=== PATIENT | male | born 1985 | race Caucasian/White ===

== ENCOUNTER 2021-07-04 20:14 | Emergency (ER) | payer BC, OTHER ==
[2021-07-04 20:44] VITALS: PULSE 79; RESP 16
[2021-07-04] MEDS ORDERED: DIPH,PERTUS(ACELL)TETVAC-LF 0.5 ML VIAL IM ONE (22:09)
[2021-07-04] MEDS ORDERED: LIDOCAINE 1% INJ 10MG/ML (5 ML VIAL-PF) SQ ONE (22:09)
--- NOTE | 2021-07-04 23:35 | ED ---
Wound/Laceration HPI - General Chief Complaint: Wound/Laceration Stated Complaint: L Hand Laceration Time Seen by Provider: 07/04/21 22:03 Source: patient Mode of arrival: ambulatory Limitations: no limitations - History of Present Illness Initial Comments: Patient is a 36-year-old male who presents for laceration. Patient states he was using a razor blade and accidentally cut his left hand in between his third and fourth fingers. Patient reports minimal pain. He denies numbness and tingling. Reports full range of motion. Last tetanus unknown. No other concerns. - Related Data Allergies Allergy/AdvReac Type Severity Reaction Status Date / Time No Known Allergies Allergy Verified 07/04/21 20:44 Review of Systems ROS Statement: Those systems with pertinent positive or pertinent negative responses have been documented in the HPI. ROS Other: All systems not noted in ROS Statement are negative. Past Medical History Past Medical History: No Reported History History of Any Multi-Drug Resistant Organisms: None Reported Past Surgical History: No Surgical Hx Reported Past Psychological History: No Psychological Hx Reported Smoking Status: Current every day smoker Past Alcohol Use History: Daily Past Drug Use History: Marijuana General Exam Limitations: no limitations General appearance: alert, in no apparent distress Head exam: Present: atraumatic, normocephalic, normal inspection Eye exam: Present: normal appearance, PERRL, EOMI. Absent: scleral icterus, conjunctival injection, periorbital swelling Neck exam: Present: normal inspection Respiratory exam: Present: normal lung sounds bilaterally. Absent: respiratory distress, wheezes, rales, rhonchi, stridor Cardiovascular Exam: Present: regular rate, normal rhythm, normal heart sounds. Absent: systolic murmur, diastolic murmur, rubs, gallop, clicks Left Hand Wrist exam: Absent: normal inspection (1 cm laceration over the web space between third and fourth digit) Neuro motor exam: Present: wrist extension intact, thumb opposition intact, thumb IP flexion intact, thumb adduction intact, fingers 2-5 abduction intact Neurosensory exam: Present: radial nerve intact, ulnar nerve intact, median nerv e intact Vascular: Present: normal capillary refill, radial pulse, brachial pulse, ulnar pulse. Absent: vascular compromise, Pallo Neurological exam: Present: alert, oriented X3, CN II-XII intact Psychiatric exam: Present: normal affect, normal mood Course Vital Signs 07/04/21 07/04/21 20:42 23:46 Temperature 98.4 F 99.7 F H Pulse Rate 79 79 Respiratory 16 16 Rate Blood Pressure 161/103 170/99 O2 Sat by Pulse 99 99 Oximetry Procedures - Laceration Laceration #1 Consent Obtained: verbal consent Indication: laceration Site: hand (Left) Size (cm): 1 Description: irregular Depth: simple, single layer Anesthetic Used: lidocaine 1% Amount (mls): 5 Pre-repair: wound explored, irrigated extensively, deep structures intact Type of Sutures: nylon Size of Sutures: 5-0 Number of Sutures: 2 Technique: simple, interrupted Patient Tolerated Procedure: well, no complications Medical Decision Making - Medical Decision Making This is a 36-year-old male presents for evaluation of laceration. Thorough history and examination were performed. There is a 1 cm laceration over the web space between third and fourth digit. Neurovascularly intact. Full range of motion. The wound explored and irrigated extensively. It was well approximated with 2 sutures. Patient tolerated the procedure well with no complications. Tetanus updated. Wound care education was provided. Patient to follow-up in 7-10 days for suture removal. Return parameters discussed. Patient verbalizes understanding and is agreeable to this plan. Dr. Salmeron is my attending. Disposition Clinical Impression: Laceration Disposition: HOME SELF-CARE Instructions (If sedation given, give patient instructions): Care For Your Stitches (ED), Laceration (ED) Additional Instructions: Please return for suture removal in 7-10 days. Return to the emergency department if you experience new, concerning, or worsening symptoms. Is patient prescribed a controlled substance at d/c from ED?: No Referrals: Jermain Hall MD [Primary Care Provider] - 1-2 days Time of Disposition: 23:35
[2021-07-04 23:48] VITALS: BP 170/99; TEMP 99.7
== END 2021-07-04 23:46 | disposition home or self-care (01) ==
LOC: EC 20:14
DX: S61.412A Laceration without foreign body of left hand, initial encounter (principal); F17.200 Nicotine dependence, unspecified, uncomplicated; Z23 Encounter for immunization; W26.8XXA Contact with other sharp object(s), not elsewhere classified, initial encounter
CPT/HCPCS: 90715; 99282; 90471; 12001; J2001

== ENCOUNTER 2021-12-25 09:44 | Emergency (ER) | payer BC, OTHER ==
[2021-12-25 09:52] VITALS: TEMP 98.3
[2021-12-25] MEDS ORDERED: dexAMETHasone 2 MG TAB PO STA (09:56)
[2021-12-25] MEDS ORDERED: LIDOCAINE VISCOUS 2% 15 ML CUP MUCOUS MEM ONE (10:06)
--- NOTE | 2021-12-25 10:09 | ED ---
General Adult HPI - General Chief complaint: ENT Stated complaint: sore throat Time Seen by Provider: 12/25/21 09:46 Source: patient, RN notes reviewed, old records reviewed Mode of arrival: ambulatory Limitations: no limitations - History of Present Illness Initial comments: Patient is a 36-year-old male who presents emergency department over concern for a sore throat since Friday. Was diagnosed Covid 2 weeks ago on a rapid test and was asymptomatic at that time. Denies cough. Began developing a sore throat on Friday. Is seeking strep throat swab. Does have a history of recurrent strep throat. Presents seeking testing. Denies cough. Denies much congestion. Denies any chest pain, shortness breath, abdominal pain, nausea, vomiting, diarr hea. No other acute complaints at this time. - Related Data Allergies Allergy/AdvReac Type Severity Reaction Status Date / Time No Known Allergies Allergy Verified 12/25/21 09:52 Review of Systems ROS Statement: Those systems with pertinent positive or pertinent negative responses have been documented in the HPI. Review of Systems: CONST: Denies fever EYES: Denies blurry vision ENT: Endorses sore throat C/V: Denies Chest pain RESP: Denies shortness of breath GI: Denies abdominal pain : Denies dysuria SKIN: Denies rash. MSK: Denies joint pain. NEURO: Denies headache ROS Other: All systems not noted in ROS Statement are negative. Past Medical History Past Medical History: No Reported History History of Any Multi-Drug Resistant Organisms: None Reported Past Surgical History: No Surgical Hx Reported Past Psychological History: No Psychological Hx Reported Smoking Status: Current every day smoker Past Alcohol Use History: Daily Past Drug Use History: Marijuana General Exam - General Exam Comments Initial Comments: General: Appears in no acute distress. HEAD: Normal with no signs of head trauma. EYES: EOMI ENT: Hearing grossly intact. Erythematous posterior oropharynx. No exudates observed. Uvula midline. No stridor. Bilateral TMs within normal limits. RESPIRATORY: No respiratory distress. No hypoxia. C/V: S1 and S2 auscultated. Peripheral pulses 2+ intact throughout. Regular rate and rhythm. ABD: Nondistended EXT: No obvious deformity SKIN: No rashes or lesions observed on exposed skin. NEURO: Alert and oriented 4 Limitations: no limitations Course Vital Signs 12/25/21 12/25/21 09:50 11:25 Temperature 98.3 F Pulse Rate 102 H 87 Respiratory 18 16 Rate Blood Pressure 152/99 142/95 O2 Sat by Pulse 98 97 Oximetry Medical Decision Making - Medical Decision Making Based on the patient's presentation and physical exam, I'm concerned for possible strep throat the patient. He did have Covid 2 weeks ago, and there will be no change in management if we were to testing for Covid at this time. We decided just to obtain strep throat swabs. He'll be given Decadron as well as viscous lidocaine. Vital signs within acceptable limits. He was in agreement this plan. Was a delay in obtaining stroke strep throat swab and the patient asked if he could leave and be called with the results. I was in agreement with this plan. Patient's strep throat testing did return and was negative. I spoke with the patient regarding his results at his phone number, [phone]. He expressed understanding. I answered all questions that he had. Recommended [id number] remedies, and retesting if he begins having worsening symptoms or any concern. He was in agreement this plan. I instructed the patient to follow up with their PCP in the next 1-3 days. I explained that the patient should return to the emergency department if they experience any worsening symptoms. Strict return precautions were discussed with the patient. The patient expressed understanding of these instructions. I answ ered all questions that the patient had. The patient was discharged home in good condition with their prescriptions and follow up information. - Lab Data Lab Results 12/25/21 Range/Units 10:46 Group A Strep (PCR) NOT DETECTED (Not Detectd) Disposition Clinical Impression: Sore throat Disposition: HOME SELF-CARE Condition: Good Instructions (If sedation given, give patient instructions): Pharyngitis (ED) Is patient prescribed a controlled substance at d/c from ED?: No Referrals: Jermain Hall MD [REFERRING] - 1-2 days Time of Disposition: 10:49
[2021-12-25 11:29] VITALS: BP 142/95; PULSE 87; RESP 16
== END 2021-12-25 11:29 | disposition home or self-care (01) ==
LOC: EC 09:44
DX: J02.9 Acute pharyngitis, unspecified (principal); F17.200 Nicotine dependence, unspecified, uncomplicated; F12.90 Cannabis use, unspecified, uncomplicated
CPT/HCPCS: 87651; 99283; J8540

== ENCOUNTER 2022-04-26 18:13 | Emergency (ER) | payer OTHER ==
[2022-04-26 18:19] VITALS: TEMP 97.9
[2022-04-26] MEDS ORDERED: SODIUM CHLORIDE 0.9% 1,000 ML IV STA (18:32)
--- NOTE | 2022-04-26 18:33 | ED ---
General Adult HPI - General Chief complaint: Neuro Symptoms/Deficit Stated complaint: Light headed and dizziness Time Seen by Provider: 04/26/22 18:20 Source: patient Mode of arrival: ambulatory Limitations: no limitations - History of Present Illness Initial comments: Dictation was produced using Segment dictation software. please excuse any gramma tical, word or spelling errors. Chief Complaint: 36-year-old male presents emergency Department with several hours of nausea, lightheadedness and paresthesias to the left upper extremity History of Present Illness:36-year-old male who was at work. 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 He states that he was at work when all of a sudden he didn't feel well. He started to notice tingling noted to his left arm. States the tingling is mildly radiates from his left shoulder down to his fingertips. Sclerae circumferential. Patient also feels a little lightheaded. Denies any nausea. He states that he did feel well asked to leave work. He went home also and felt like his symptoms became slightly improved. He decided come to the emergency department to be evaluated. Patient reports that he does feel the beginnings of a mild headache. Denies any weakness of his left arm. No other complaints. Denies any constitutional symptoms. The ROS documented in this emergency department record has been reviewed and confirmed by me. Those systems with pertinent positive or negative responses have been documented in the HPI. All other systems are other negative and/or noncontributory. PHYSICAL EXAM: General Impression: Alert and oriented x3, not in acute distress HEENT: Normocephalic atraumatic, extra-ocular movements intact, pupils equal and reactive to light bilaterally, mucous membranes moist. Cardiovascular: Heart regular rate and rhythm Chest: Able to complete full sentences, no retractions, no tachypnea Abdomen: abdomen soft, non-tender, non-distended, no organomegaly Musculoskeletal: Pulses present and equal in all extremities, no peripheral edema Motor: no focal deficits noted Neurological: CN II-XII grossly intact, no focal motor or sensory deficits noted Skin: Intact with no visualized rashes Psych: Normal affect and mood ED course: 36-year-old well-appearing male presents emergency department for chief complaint of left upper extremity paresthesias, mild headache and lightheadedness. Vital signs arrival are within acceptable limits. EKG is unremarkable. Nursing notes and chart review was performed EKG interpreted by me: Ventricular rate 87, sinus rhythm,. 154, QRS 111, QTC 395. No IA prolongation, no QTC prolongation, no ST or T-wave changes noted. Overall, this EKG is unremarkable Was pt. sent in by a medical professional or institution (ARTEM Lockett, PITCH WORKER, urgent care, hospital, or halfway...) When possible be specific @ -No Did you speak to anyone other than the patient for history (EMS, parent, family, police, friend...)? What history was obtained from this source @ -No Did you review nursing and triage notes (agree or disagree)? Why? @ -I reviewed and agree with nursing and triage notes Were old charts reviewed (outside hosp., previous admission, EMS record, old EKG, old radiological studies, urgent care reports/EKG's, halfway records)? Report findings @ -No old charts were reviewed Differential Diagnosis (chest pain, altered mental status, abdominal pain women, abdominal pain men, vaginal bleeding, musculoskeletal, weakness, fever, dyspnea, syncope, headache, dizziness, GI bleed, back pain, seizure, CVA, palpatations, mental health)? @ -CVA, intracranial mass, viral syndrome, primary headache EKG interpreted by me (3pts min.). @ -See above X-rays interpreted by me (1pt min.). @ -None done CT interpreted by me (1pt min.). @ -No acute processes U/S interpreted by me (1pt. min.). @ -None done What testing was considered but not performed or refused? (CT, X-rays, U/S, labs)? Why? @ -See above What meds were considered but not given or refused? Why? @ -See above Did you discuss the management of the patient with other professionals (professionals i.e. ARTEM Lockett, PITCH WORKER, lab, RT, psych nurse, social services manager, housekeeper and laundry assistant, teacher, correctional security officer, case supervisor)? Give summary @ -no Was smoking cessation discussed for >3mins.? @ -No Was critical care preformed (if so, how long)? @ -No Were there social determinants of health that impacted care today? How? (Homelessness, low income, unemployed, alcoholism, drug addiction, tr ansportation, low edu. Level, literacy, decrease access to med. care, assisted, rehab)? @ -No Was there de-escalation of care discussed even if they declined (Discuss DNR or withdrawal of care, Hospice)? DNR status @ -No What co-morbidities impacted this encounter? (DM, HTN, Smoking, COPD, CAD, Cancer, CVA, ARF, Chemo, Hep., AIDS, mental health diagnosis, sleep apnea, morbid obesity)? @ -None Was patient admitted / discharged? Hospital course, mention meds given and route, prescriptions, significant lab abnormalities, going to OR and other pertinent info. @ -36-year-old male presents emergency department for nonspecific symptoms. As a component of neurologic symptoms and headache. Physical examination is benign. Laboratory evaluation obtained. Labs are unremarkable. Computed tomography scan of the brain to prevent by myself shows no acute processes. Artem mariposafransico monitored in the emergency department for approximately 1 hour 10 minutes. Reevaluated at bedside at 725. Vitamin C medical condition. Patient treated with fluids, Zofran and Toradol. Patient feeling much improved. At this point no obvious source of patient's symptoms however he doesn't have any high-risk features. Patient is agreeable to discharge. Advised follow-up with primary care doctor. Undiagnosed new problem with uncertain prognosis? @ -No Drug Therapy requiring intensive monitoring for toxicity (Heparin, Nitro, Insul in, Cardizem)? @ -No Were any procedures done? @ -No Diagnosis/symptom? Acute, or Chronic, or Acute on Chronic? Uncomplicated (without systemic symptoms) or Complicated (systemic symptoms)? @ -1. Acute lightheadedness Side effects of treatment? @ -No Exacerbation, Progression, or Severe Exacerbation? @ -No Poses a threat to life or bodily function? How? (Chest pain, [place], [place], pneumonia, PE, COPD, DKA, ARF, appy, cholecystitis, CVA, Diverticulitis, Homicidal, Suicidal, threat to staff... and all critical care pts) @ -No - Related Data Home Medications Medication Instructions Recorded Confirmed Cholecalciferol [Vitamin D3 (25 50 mcg PO DAILY 04/26/22 04/26/22 Mcg = 1000 Iu)] Cyanocobalamin (Vitamin B-12) 1,000 mcg PO DAILY 04/26/22 04/26/22 [Vitamin B-12] Ibuprofen [Motrin Ib] 400 mg PO Q6H PRN 04/26/22 04/26/22 [place]-3/Dha/Epa/Fish Oil [Fish Oil 1 cap PO DAILY 04/26/22 04/26/22 1,000 mg Softgel] Allergies Allergy/AdvReac Type Severity Reaction Status Date / Time No Known Allergies Allergy Verified 04/26/22 18:27 Review of Systems ROS Statement: Those systems with pertinent positive or pertinent negative responses have been documented in the HPI. ROS Other: All systems not noted in ROS Statement are negative. Past Medical History Past Medical History: No Reported History History of Any Multi-Drug Resistant Organisms: None Reported Past Surgical History: No Surgical Hx Reported Past Psychological History: No Psychological Hx Reported Smoking Status: Current every day smoker Past Alcohol Use History: Daily Past Drug Use History: Marijuana General Exam Limitations: no limitations Course Vital Signs 04/26/22 04/26/22 18:15 18:42 Temperature 97.9 F Pulse Rate 93 92 Respiratory 16 18 Rate Blood Pressure 178/116 163/77 O2 Sat by Pulse 99 98 Oximetry Medical Decision Making - Lab Data Result diagrams: 04/26/22 18:40 04/26/22 18:40 Lab Results 04/26/22 04/26/22 Range/Units 18:40 18:40 WBC 6.9 (3.8-10.6) k/uL RBC 4.68 (4.30-5.90) m/uL Hgb 16.5 (13.0-17.5) gm/dL Hct 44.5 (39.0-53.0) % MCV 95.0 (80.0-100.0) fL MCH 35.2 H (25.0-35.0) pg MCHC 37.1 H (31.0-37.0) g/dL RDW 13.2 (11.5-15.5) % Plt Count 188 (150-450) k/uL MPV 7.0 Neutrophils % 52 % Lymphocytes % 36 % Monocytes % 6 % Eosinophils % 3 % Basophils % 1 % Neutrophils # 3.5 (1.3-7.7) k/uL Lymphocytes # 2.5 (1.0-4.8) k/uL Monocytes # 0.4 (0-1.0) k/uL Eosinophils # 0.2 (0-0.7) k/uL Basophils # 0.1 (0-0.2) k/uL Sodium 135 L (137-145) mmol/L Potassium 4.0 (3.5-5.1) mmol/L Chloride 100 (98-107) mmol/L Carbon Dioxide 27 (22-30) mmol/L Anion Gap 8 mmol/L BUN 18 (9-20) mg/dL Creatinine 0.71 (0.66-1.25) mg/dL Est GFR (CKD-EPI)AfAm >90 (>60 ml/min/1.73 sqM) Est GFR (CKD-EPI)NonAf >90 (>60 ml/min/1.73 sqM) Glucose 106 H (74-99) mg/dL Calcium 9.0 (8.4-10.2) mg/dL Magnesium 1.7 (1.6-2.3) mg/dL Disposition Clinical Impression: Lightheaded Disposition: HOME SELF-CARE Condition: Good Instructions (If sedation given, give patient instructions): Lightheadedness (ED) Is patient prescribed a controlled substance at d/c from ED?: No Referrals: Nonstaff,Physician [Primary Care Provider] - 1-2 days Time of Disposition: 19:28
[2022-04-26] MEDS ORDERED: ONDANSETRON 4 MG/2 ML VIAL IVP STA (18:47)
[2022-04-26] MEDS ORDERED: KETOROLAC 15 MG/ML 1 ML VIAL IVP STA (18:47)
[2022-04-26 18:52] LABS: Basophils # (A) 0.1 k/uL (0-0.2); Basophils % (A) 1 %; Eosinophils # (A) 0.2 k/uL (0-0.7); Eosinophils % (A) 3 %; HCT 44.5 % (39.0-53.0); HGB 16.5 gm/dL (13.0-17.5); Lymphocytes # (A) 2.5 k/uL (1.0-4.8); Lymphocytes % (A) 36 %; MCH 35.2 pg (25.0-35.0); MCHC 37.1 g/dL (31.0-37.0); Monocytes # (A) 0.4 k/uL (0-1.0); Monocytes % (A) 6 %; Neutrophils # (A) 3.5 k/uL (1.3-7.7); Neutrophils % (A) 52 %; Platelet Count 188 k/uL (150-450); RBC 4.68 m/uL (4.30-5.90); RDW 13.2 % (11.5-15.5); WBC 6.9 k/uL (3.8-10.6)
[2022-04-26 18:58] LABS: African American GFR (CKD) >90 (>60 ml/min/1.73 sqM); Anion Gap 8 mmol/L; Blood Urea Nitrogen 18 mg/dL (9-20); Carbon Dioxide 27 mmol/L (22-30); Chloride 100 mmol/L (98-107); Glucose 106 mg/dL (74-99); Magnesium 1.7 mg/dL (1.6-2.3); Non-African American GFR(CKD) >90 (>60 ml/min/1.73 sqM); Sodium 135 mmol/L (137-145)
--- NOTE | 2022-04-26 19:22 | CT ---
EXAMINATION TYPE: CT brain wo con DATE OF EXAM: 04/26/2022 COMPARISON: None HISTORY: Dizziness, brain fog x1day, no injury. CT DLP: 1143.4 mGycm Automated exposure control for dose reduction was used. Images obtained of the brain without contrast. Ventricles have normal size. There is no mass effect or midline shift. No sign of intracranial hemorr roberth. The calvarium is intact. Skull base is intact. IMPRESSION: Negative unenhanced head CT scan.
[2022-04-26] MEDS ORDERED: ONDANSETRON 4 MG ODT STARTER PACK 2 TAB BTL PO STA (19:28)
[2022-04-26 20:43] VITALS: BP 156/92; PULSE 80; RESP 16
== END 2022-04-26 20:10 | disposition home or self-care (01) ==
LOC: EC 18:13
DX: R42 Dizziness and giddiness (principal); F17.200 Nicotine dependence, unspecified, uncomplicated; F12.90 Cannabis use, unspecified, uncomplicated
CPT/HCPCS: 36415; 93005; 80048; 83735; 85025; 70450; 99284; 96360; S0119

== ENCOUNTER 2023-04-23 11:51 | Emergency (ER) | payer OTHER ==
[2023-04-23 12:14] VITALS: RESP 18; TEMP 98.4
--- NOTE | 2023-04-23 13:09 | ED ---
Alcohol HPI - General Source: patient, RN notes reviewed Mode of arrival: ambulatory Limitations: no limitations <Marisa Jenkins - Last Filed: 04/23/23 13:07> <Riky Lynne - Last Filed: 04/23/23 16:55> - General Chief Complaint: Alcohol Stated Complaint: Dizziness, SOB, disoriented Time Seen by Provider: 04/23/23 13:00 - History of Present Illness Initial Comments: Quick Note: This is a 37-year-old male who presents to the emergency department for alcohol abuse. Patient states that he woke up having a panic attack, which is unusual for him. He started to feel very dizzy, disoriented, and had tingling in his extremities. Also reports some shortness of breath. He took himself to an urgent care and was told that this is likely related to alcohol abuse. States that the amount he drinks varies each day. He has not had anything to drink today, but yesterday had half of a fifth of liquor. (Marisa Jenkins) This is a 37-year-old male who presents to the emergency department stating that he is a daily drinker and today he woke up and was having a panic attack felt short of breath and became dizzy and had tingling in both of his hands and feet. Patient states he went to the urgent care and they told him to come to the emergency department. Patient states he normally does not start drinking till the evening. Patient denies any abdominal pain. Patient Nu[place] chest pain or palpitations. Patient denies any headache patient denies any focal numbness or weakness. (Riky Lynne) - Related Data Home Medications Medication Instructions Recorded Confirmed Cholecalciferol [Vitamin D3 (25 50 mcg PO DAILY 04/26/22 04/26/22 Mcg = 1000 Iu)] Cyanocobalamin (Vitamin B-12) 1,000 mcg PO DAILY 04/26/22 04/26/22 [Vitamin B-12] Ibuprofen [Motrin Ib] 400 mg PO Q6H PRN 04/26/22 04/26/22 [place]-3/Dha/Epa/Fish Oil [Fish Oil 1 cap PO DAILY 04/26/22 04/26/22 1,000 mg Softgel] Allergies Allergy/AdvReac Type Severity Reaction Status Date / Time No Known Allergies Allergy Verified 04/23/23 12:13 Review of Systems ROS Other: All systems not noted in ROS Statement are negative. <Marisa Jenkins - Last Filed: 04/23/23 13:07> ROS Other: All systems not noted in ROS Statement are negative. <Riky Lynne - Last Filed: 04/23/23 16:55> ROS Statement: Those systems with pertinent positive or pertinent negative responses have been documented in the HPI. Past Medical History Past Medical History: No Reported History History of Any Multi-Drug Resistant Organisms: None Reported Past Surgical History: No Surgical Hx Reported Past Psychological History: No Psychological Hx Reported, Depression Smoking Status: Current every day smoker Past Alcohol Use History: Daily Past Drug Use History: Marijuana <Marisa Jenkins - Last Filed: 04/23/23 13:07> General Exam <Marisa Jenkins - Last Filed: 04/23/23 13:07> <Riky Lynne - Last Filed: 04/23/23 16:55> - General Exam Comments Initial Comments: Visual Physical Exam Vital signs reviewed General: Well-appearing, nontoxic, no acute distress. Head: Normocephalic, atraumatic Eyes: PERRLA, EOMI ENT: Airway patent Chest: Nonlabored breathing Skin: No visual rash, normal skin tone Neuro: Alert and oriented 3 Musculoskeletal: No gross abnormalities (Marisa Jenkins) GENERAL: Patient is well-developed and well-nourished. Patient is nontoxic and well- hydrated and is in mild distress. ENT: Neck is soft and supple. No significant lymphadenopathy is noted. Oropharynx is clear. Moist mucous membranes. Neck has full range of motion without eliciting any pain. EYES: The sclera were anicteric and conjunctiva were pink and moist. Extraocular movements were intact and pupils were equal round and reactive to light. Eyelids were unremarkable. PULMONARY: Unlabored respirations. Good breath sounds bilaterally. No audible rales rhonchi or wheezing was noted. CARDIOVASCULAR: There is a regular rate and rhythm without any murmurs gallops or rubs. ABDOMEN: Soft and nontender with normal bowel sounds. SKIN: Skin is clear with no lesions or rashes and otherwise unremarkable. NEUROLOGIC: Patient is alert and oriented x3. Cranial nerves II through XII are grossly intact. Motor and sensory are also intact. Normal speech, volume and content. Symmetrical smile. MUSCULOSKELETAL: Normal extremities with adequate strength and full range of motion. LYMPHATICS: No significant lymphadenopathy is noted PSYCHIATRIC: Patient is mildly anxious (Riky Lynne) Course Vital Signs 04/23/23 04/23/23 12:07 16:50 Temperature 98.4 F Pulse Rate 83 73 Respiratory 18 18 Rate Blood Pressure 163/101 158/99 O2 Sat by Pulse 99 97 Oximetry Medical Decision Making <Marisa Jenkins - Last Filed: 04/23/23 13:07> - Lab Data Result diagrams: 04/23/23 13:27 04/23/23 13:27 <Riky Lynne - Last Filed: 04/23/23 16:55> - Medical Decision Making I performed the QuickNote portion of this chart. Signed Marisa Jenkins PA-C. (Marisa Jenkins) EKG is interpreted by myself but EKG shows a sinus rhythm at 79 bpm WA is 161 QRS is 105 QT interval 371 QTc is 400 patient EKG shows no ST segment ovation. Was pt. sent in by a medical professional or institution ([facility], [facility], urgent care, hospital, or care home...) When possible be specific @ -No Did you speak to anyone other than the patient for history (EMS, parent, family, police, friend...)? What history was obtained from this source @ -No Did you review nursing and triage notes (agree or disagree)? Why? @ -I reviewed and agree with nursing and triage notes Were old charts reviewed (outside hosp., previous admission, EMS record, old EKG, old radiological studies, urgent care reports/EKG's, care home records)? Report findings @ -No old charts were reviewed Differential Diagnosis (chest pain, altered mental status, abdominal pain women, abdominal pain men, vaginal bleeding, weakness, fever, dyspnea, syncope, headache, dizziness, GI bleed, back pain, seizure, CVA, palpatations, mental health, musculoskeletal)? @ -Not applicable EKG interpreted by me (3pts min.). @ -As above X-rays interpreted by me (1pt min.). @ -None done CT interpreted by me (1pt min.). @ -None done U/S interpreted by me (1pt. min.). @ -None done What testing was considered but not performed or refused? (CT, X-rays, U/S, labs)? Why? @ -None What meds were considered but not given or refused? Why? @ -None Did you discuss the management of the patient with other professionals (professionals i.e. , PA, RIDING TEACHER, lab, RT, psych nurse, social contact worker, block sawyer, teacher, training officer, sample case porter)? Give summary @ -No Was smoking cessation discussed for >3mins.? @ -No Was critical care preformed (if so, how long)? @ -No Were there social determinants of health that impacted care today? How? (Homelessness, low income, unemployed, alcoholism, drug addiction, transportation, low edu. Level, literacy, decrease access to med. care, half-way, rehab)? @ -No Was there de-escalation of care discussed even if they declined (Discuss DNR or withdrawal of care, Hospice)? DNR status @ -No What co-morbidities impacted this encounter? (DM, HTN, Smoking, COPD, CAD, Cancer, CVA, ARF, Chemo, Hep., AIDS, mental health diagnosis, sleep apnea, morbid obesity)? @ -None Was patient admitted / discharged? Hospital course, mention meds given and route, prescriptions, significant lab abnormalities, going to OR and other pertinent info. @ -Patient received fluids as well as magnesium for the low magnesium value. Patient also received some Ativan. I went back and reevaluated the patient on 2 occasions and he was feeling considerably better. Undiagnosed new problem with uncertain prognosis? @ -No Drug Therapy requiring intensive monitoring for toxicity (Heparin, Nitro, Insulin, Cardizem)? @ -No Were any procedures done? @ -No Diagnosis/symptom? @ -Alcohol abuse Acute, or Chronic, or Acute on Chronic? @ -Acute Uncomplicated (without systemic symptoms) or Complicated (systemic symptoms)? @ -Complicated Side effects of treatment? @ -No Exacerbation, Progression, or Severe Exacerbation? @ -No Poses a threat to life or bodily function? How? (Chest pain, [place], [place], pneumonia, PE, COPD, DKA, ARF, appy, cholecystitis, CVA, Diverticulitis, Homicidal, Suicidal, threat to staff... and all critical care pts) @ -No Diagnosis/symptom? @ -Hypomagnesemia Acute, or Chronic, or Acute on Chronic? @ -Acute Uncomplicated (without systemic symptoms) or Complicated (systemic symptoms)? @ -Complicated Side effects of treatment? @ -None Exacerbation, Progression, or Severe Exacerbation] @ -No Poses a threat to life or bodily function? @ -No Diagnosis/symptom? @ -Anxiety Acute, or Chronic, or Acute on Chronic? @ -Acute Uncomplicated (without systemic symptoms) or Complicated (systemic symptoms)? @ -Uncomplicated Side effects of treatment? @ -None Exacerbation, Progression, or Severe Exacerbation] @ -No Poses a threat to life or bodily function? @ -No (Riky Lynne) - Lab Data Lab Results 04/23/23 04/23/23 Range/Units 13:27 13:27 WBC 12.0 H (3.8-10.6) k/uL RBC 4.73 (4.30-5.90) m/uL Hgb 16.3 (13.0-17.5) gm/dL Hct 46.9 (39.0-53.0) % MCV 99.1 (80.0-100.0) fL MCH 34.5 (25.0-35.0) pg MCHC 34.8 (31.0-37.0) g/dL RDW 12.9 (11.5-15.5) % Plt Count 216 (150-450) k/uL MPV 7.4 Neutrophils % 82 % Lymphocytes % 11 % Monocytes % 4 % Eosinophils % 1 % Basophils % 0 % Neutrophils # 9.9 H (1.3-7.7) k/uL Lymphocytes # 1.4 (1.0-4.8) k/uL Monocytes # 0.5 (0-1.0) k/uL Eosinophils # 0.1 (0-0.7) k/uL Basophils # 0.0 (0-0.2) k/uL Sodium 138 (137-145) mmol/L Potassium 4.2 (3.5-5.1) mmol/L Chloride 100 (98-107) mmol/L Carbon Dioxide 29 (22-30) mmol/L Anion Gap 9 mmol/L BUN 11 (9-20) mg/dL Creatinine 0.74 (0.66-1.25) mg/dL Est GFR (CKD-EPI)AfAm >90 (>60 ml/min/1.73 sqM) Est GFR (CKD-EPI)NonAf >90 (>60 ml/min/1.73 sqM) Glucose 132 H (74-99) mg/dL Calcium 9.7 (8.4-10.2) mg/dL Phosphorus 3.5 (2.5-4.5) mg/dL Magnesium 1.3 L (1.6-2.3) mg/dL Total Bilirubin 0.8 (0.2-1.3) mg/dL AST 146 H (17-59) U/L ALT 163 H (4-49) U/L Alkaline Phosphatase 62 (38-126) U/L Total Protein 7.7 (6.3-8.2) g/dL Albumin 4.9 (3.5-5.0) g/dL Serum Alcohol <10 mg/dL Disposition <Marisa Jenkins - Last Filed: 04/23/23 13:07> Is patient prescribed a controlled substance at d/c from ED?: No Time of Disposition: 16:49 <Riky Lynne - Last Filed: 04/23/23 16:55> Clinical Impression: Alcohol abuse, Hypomagnesemia, Anxiety Disposition: HOME SELF-CARE Condition: Good Instructions (If sedation given, give patient instructions): Abuse of Alcohol (ED), Hypomagnesemia (ED) Additional Instructions: Patient should go to be admitted at a rehabilitation center Patient should take magnesium [id number] daily Referrals: Jermain Hall MD [Primary Care Provider] - 1-2 days
[2023-04-23 13:52] LABS: Basophils % (A) 0 %; Eosinophils # (A) 0.1 k/uL (0-0.7); Eosinophils % (A) 1 %; HCT 46.9 % (39.0-53.0); HGB 16.3 gm/dL (13.0-17.5); Lymphocytes # (A) 1.4 k/uL (1.0-4.8); Lymphocytes % (A) 11 %; MCH 34.5 pg (25.0-35.0); MCHC 34.8 g/dL (31.0-37.0); MCV 99.1 fL (80.0-100.0); Mean Platelet Volume 7.4; Monocytes # (A) 0.5 k/uL (0-1.0); Monocytes % (A) 4 %; Neutrophils # (A) 9.9 k/uL (1.3-7.7); Neutrophils % (A) 82 %; Platelet Count 216 k/uL (150-450); RBC 4.73 m/uL (4.30-5.90); RDW 12.9 % (11.5-15.5)
[2023-04-23 14:05] LABS: ALT 163 U/L (4-49); AST 146 U/L (17-59); African American GFR (CKD) >90 (>60 ml/min/1.73 sqM); Albumin 4.9 g/dL (3.5-5.0); Alcohol <10 mg/dL; Alkaline Phosphatase 62 U/L (38-126); Anion Gap 9 mmol/L; Blood Urea Nitrogen 11 mg/dL (9-20); Calcium 9.7 mg/dL (8.4-10.2); Carbon Dioxide 29 mmol/L (22-30); Chloride 100 mmol/L (98-107); Glucose 132 mg/dL (74-99); Magnesium 1.3 mg/dL (1.6-2.3); Non-African American GFR(CKD) >90 (>60 ml/min/1.73 sqM); Phosphorus 3.5 mg/dL (2.5-4.5); Potassium 4.2 mmol/L (3.5-5.1); Sodium 138 mmol/L (137-145); Total Bilirubin 0.8 mg/dL (0.2-1.3); Total Protein 7.7 g/dL (6.3-8.2)
[2023-04-23] MEDS: MAGNESIUM SULFATE-D5W PMX 1 GM in DEXTROSE/WATER 1 100ML.BAG IVPB ONE (14:45)
--- NOTE | 2023-04-23 14:55 | XR ---
EXAMINATION TYPE: XR chest 2V DATE OF EXAM: 04/23/2023 COMPARISON: None HISTORY: 37-year-old male with chest pain and dizziness TECHNIQUE: PA and lateral views FINDINGS: The cardiomediastinal silhouette, aorta, and pulmonary vasculature are within normal limits. Lungs an d pleural spaces are clear. IMPRESSION: No acute cardiopulmonary process.
[2023-04-23] MEDS: SODIUM CHLORIDE 0.9% 1,000 ML IV ONE (14:58)
[2023-04-23] MEDS: SODIUM CHLORIDE 0.9% 500 ML 500 ML IV ONE (14:58)
[2023-04-23] MEDS: LORazepam 2 MG/ML INJ IV STA ×2 (14:58→17:05)
[2023-04-23] MEDS: ONDANSETRON 4 MG/2 ML VIAL IVP STA (14:58)
[2023-04-23 17:00] VITALS: BP 158/99; PULSE 73
== END 2023-04-23 17:06 | disposition home or self-care (01) ==
LOC: EC 11:51
DX: F10.10 Alcohol abuse, uncomplicated (principal); E83.42 Hypomagnesemia; F41.9 Anxiety disorder, unspecified; F12.90 Cannabis use, unspecified, uncomplicated; F17.200 Nicotine dependence, unspecified, uncomplicated
CPT/HCPCS: 36415; 93005; 80053; 83735; 84100; 85025; 80320; 71046; 99285; 96365; 96375 ×2; 96361; J2060; J2405; J3475

== ENCOUNTER 2023-11-09 02:25 | Emergency (ER) | payer BC ==
[2023-11-09 02:28] VITALS: TEMP 98
[2023-11-09] MEDS: SODIUM CHLORIDE 0.9% 2,000 ML IV STA (03:08)
--- NOTE | 2023-11-09 03:14 | ED ---
General Adult HPI - General Chief complaint: Abdominal Pain Stated complaint: Abd Pain/Vomitting Time Seen by Provider: 11/09/23 02:44 Source: patient Mode of arrival: ambulatory Limitations: no limitations - History of Present Illness Initial comments: Patient is a 38-year-old M with a past medical history of alcoholism presenting today for nausea, vomiting and abdominal pain. Patient states he went to the [facility] with his girlfriend today ate some food and drink some water and went home. He states he did have about 3 beers. Upon arrival home he had some sausage and then states it felt like he sat like a brick in his stomach. He began having episodes of nonbloody nonbilious emesis. As well as epigastric abdominal pain. Additionally noticed left-sided chest tightness. Last bowel movement was earlier today and was small. No prior abdominal surgeries. Patient does currently drink approximately half a pint of alcohol a day but states he is cutting back from his usual pint today. Started cutting back 30 center Friday. States it does not feel like his usual alcohol draws. Denies fevers but endorses chills. No cough or hemoptysis. No lightheadedness or dizziness. No diarrhea or black or bloody stools. Denies visual or auditory hallucinations. Denies sensations of pain or needles. No illicit drug use. - Related Data Home Medications Medication Instructions Recorded Confirmed Cholecalciferol [Vitamin D3 (25 50 mcg PO DAILY 04/26/22 04/26/22 Mcg = 1000 Iu)] Cyanocobalamin (Vitamin B-12) 1,000 mcg PO DAILY 04/26/22 04/26/22 [Vitamin B-12] Ibuprofen [Motrin Ib] 400 mg PO Q6H PRN 04/26/22 04/26/22 Emerson-3/Dha/Epa/Fish Oil [Fish Oil 1 cap PO DAILY 04/26/22 04/26/22 1,000 mg Softgel] Previous Rx's Medication Instructions Recorded Famotidine/Ca Carb/Mag Hydrox 1 tab PO Q8HR PRN 7 Days #24 tab 11/09/23 [Pepcid Complete Tablet Chew] Ondansetron [Zofran] 4 mg PO Q8HR PRN #10 tab 11/09/23 Allergies Allergy/AdvReac Type Severity Reaction Status Date / Time No Known Allergies Allergy Verified 11/09/23 02:28 Review of Systems ROS Statement: Those systems with pertinent positive or pertinent negative responses have been documented in the HPI. ROS Other: All systems not noted in ROS Statement are negative. Past Medical History Past Medical History: No Reported History History of Any Multi-Drug Resistant Organisms: None Reported Past Surgical History: No Surgical Hx Reported Past Psychological History: No Psychological Hx Reported, Depression Smoking Status: Current every day smoker Past Alcohol Use History: Daily Past Drug Use History: Marijuana General Exam - General Exam Comments Initial Comments: PE: CONSTITUTIONAL: No apparent distress, ill appearing, nontoxic SKIN: Warm, dry, no jaundice, hives or petechiae EYES: Pupils are equally round, extraocular movements intact without nystagmus, clear conjunctiva, non-icteric sclera HENT: Normocephalic, atraumatic, dry mucus membranes, oropharynx clear without exudates NECK: , Full range of motion, normal appearance PULMONARY: Clear to auscultation without wheezes, rhonchi, or rales, normal e xcursion, no accessory muscle use and no stridor CARDIOVASCULAR: Regular rate, rhythm, normal S1 and S2. No appreciated murmurs, rubs or gallops. Strong radial pulses with intact distal perfusion. No lower extremity edema GASTROINTESTINAL: Soft, epigastric TTP, negative lockett's sign, bowel sounds p resent throughout, non-distended, no palpable masses, no rebound; guarding with palpable of epigastrium, No hepatosplenomegaly MUSCULOSKELETAL: Extremities have no gross deformity, no edema, redness, or swelling. No calf swelling ot TTP. NEUROLOGIC:_a/o x 3, GCS 15, normal mentation and speech. Moves all extremities x 4 without motor or sensory deficit PSYCHIATRIC:_normal mood and affect, thought process is clear and linear Limitations: no limitations Course Vital Signs 11/09/23 11/09/23 02:26 06:00 Temperature 98 F Pulse Rate 77 70 Respiratory 18 17 Rate Blood Pressure 176/100 164/106 O2 Sat by Pulse 99 97 Oximetry EKG Findings - EKG Comments: EKG Findings:: Sinus rhythm, rate 72 bpm, DE interval 166 ms, QRS duration 112 ms, QT/QTc 392/416 ms, normal axis, no ST elevations or depressions Medical Decision Making - Medical Decision Making Was pt. sent in by a medical professional or institution (Dr., PA, PARKING LOT SUPERVISOR, urgent care, hospital, or long-term...) When possible be specific @ -No Did you speak to anyone other than the patient for history (EMS, parent, family, police, friend...)? What history was obtained from this source @ -No Did you review nursing and triage notes (agree or disagree)? Why? @ -I reviewed and agree with nursing and triage notes Were old charts reviewed (outside hosp., previous admission, EMS record, old EKG, old radiological studies, urgent care reports/EKG's, long-term records)? Report findings @ -No old charts were reviewed Differential Diagnosis (chest pain, altered mental status, abdominal pain women, abdominal pain men, vaginal bleeding, weakness, fever, dyspnea, syncope, headache, dizziness, GI bleed, back pain, seizure, CVA, palpatations, mental health, musculoskeletal)? @ -Differential Abdominal Pain Men: Appendicitis, cholecystitis, diverticulosis, ischemic bowel, pancreatitis, hepatitis, UTI, gastroenteritis, incarcerated hernia, bowel obstruction, constipation, inflammatory bowel, hepatitis, peptic ulcer disease, splenic infarction, perforated viscus this is not meant to be an all-inclusive list EKG interpreted by me (3pts min.). @ -As above X-rays interpreted by me (1pt min.). @No cardiomegaly, consolidations or pneumothorax CT interpreted by me (1pt min.). @ No evidence of perforation or obstruction U/S interpreted by me (1pt. min.). @ -None done What testing was considered but not performed or refused? (CT, X-rays, U/S, labs)? Why? @ -None What meds were considered but not given or refused? Why? @ -None Did you discuss the management of the patient with other professionals (professionals i.e. , PA, PARKING LOT SUPERVISOR, lab, RT, psych nurse, social service coordinator, guest request runner, teacher, cavalry officer, case management assistant)? Give summary @ -No Was smoking cessation discussed for >3mins.? @ -No Was critical care preformed (if so, how long)? @ -No Were there social determinants of health that impacted care today? How? (Homelessness, low income, unemployed, alcoholism, drug addiction, transportation, low edu. Level, literacy, decrease access to med. care, retirement, rehab)? @ -Alcoholism Was there de-escalation of care discussed even if they declined (Discuss DNR or withdrawal of care, Hospice)? @ -No What co-morbidities impacted this encounter? (DM, HTN, Smoking, COPD, CAD, Cancer, CVA, ARF, Chemo, Hep., AIDS, mental health diagnosis, sleep apnea, morbid obesity)? @ -Hx alcoholism Was patient admitted / discharged? Hospital course, mention meds given and route, prescriptions, significant lab abnormalities, going to OR and other pertinent info. @ -Patient is a pleasant 38-year-old gentleman presenting today for 1 day of na usea, vomiting and epigastric pain with associated left-sided chest tightness. Multiple episodes nonbloody nonbilious emesis. On my assessment patient is ill- appearing and shaky. Exam significant for lungs clear to auscultation bilaterally, tenderness with patient left side of the chest wall, left upper quadrant, epigastric and right upper quadrant tenderness with a negative Lockett sign. Abdomen is nondistended but bowel sounds are decreased. Mucous membranes dry. Plan for CBC, CMP, lipase, amylase, troponin, chest x-ray, EKG, lactic, urinalysis, blood alcohol level, CT of the pelvis with contrast, morphine, Zofran IV fluids and Protonix. Patient continue be painful nausea status post morphine Zofran. Ordered additional dose of morphine and Zofran. Labs and imaging reviewed. Grossly within normal limits. Abnormal values not concerning for acute pathology related to presenting complaint. Will repeat troponin and ultimately anticipate discharge. On reassessment patient endorsed improvement in symptoms. Will attempt PO challenge and if able to tolerate PO, D/c. Pt agreeable with POC. Pt vomited after attempting to drink water. Order compazine. If fails PO challenge a second time, will admit for intractable nausea and vomiting. Pt sipping water on reassessment. Discussed admission for nausea and pain control versus discharge home with Pepcid and Zofran. Patient requesting additional medications for pain control if discharged however discussed with him that I did not feel comfortable prescribing narcotics for abdominal pain. Ultimately patient was comfortable discharge home, clear liquid diet Zofran and Pepcid. Patient to return if he cannot keep fluids down for greater than 8 hours or as any of the symptoms and discharge paperwork. Patient comfortable and agreeable plan of care. In my medical judgment there is currently no evidence of an immediate life-t hreatening or surgical condition. Discharge is therefore indicated at this time. Discharge treatment instructions, follow up instructions, and appropriate emergency department return precautions were discussed with the patient and/or medical decision maker. Patient and/or medical decision maker expressed understanding of and agreed with the treatment plan, follow up instructions, and emergency department return precaution. All patient's and/or medical decision maker's questions were answered. Undiagnosed new problem with uncertain prognosis? @ -No Drug Therapy requiring intensive monitoring for toxicity (Heparin, Nitro, Insulin, Cardizem)? @ -No Were any procedures done? @ -No Diagnosis/symptom? @Abdominal pain, nausea and vomiting Acute, or Chronic, or Acute on Chronic? @Acute Uncomplicated (without systemic symptoms) or Complicated (systemic symptoms)? @ -[Complicated Side effects of treatment? @ -No Exacerbation, Progression, or Severe Exacerbation? @ -No Poses a threat to life or bodily function? How? (Chest pain, [place], [place], pneumonia, PE, COPD, DKA, ARF, appy, cholecystitis, CVA, Diverticulitis, Homicidal, Suicidal, threat to staff... and all critical care pts) @ -Unlikely] - Lab Data Result diagrams: 11/09/23 03:38 11/09/23 03:38 Lab Results 11/09/23 11/09/23 11/09/23 Range/Units 03:38 03:38 03:38 WBC 11.0 H (3.8-10.6) k/uL RBC 4.73 (4.30-5.90) m/uL Hgb 16.1 (13.0-17.5) gm/dL Hct 46.5 (39.0-53.0) % MCV 98.4 (80.0-100.0) fL MCH 34.1 (25.0-35.0) pg MCHC 34.7 (31.0-37.0) g/dL RDW 13.4 (11.5-15.5) % Plt Count 243 (150-450) k/uL MPV 7.9 Neutrophils % 75 % Lymphocytes % 19 % Monocytes % 4 % Eosinophils % 1 % Basophils % 0 % Neutrophils # 8.3 H (1.3-7.7) k/uL Lymphocytes # 2.1 (1.0-4.8) k/uL Monocytes # 0.4 (0-1.0) k/uL Eosinophils # 0.1 (0-0.7) k/uL Basophils # 0.0 (0-0.2) k/uL PT 10.2 (10.0-12.5) sec INR 0.9 (<1.2) APTT 24.1 (22.0-30.0) sec Sodium 137 (137-145) mmol/L Potassium 3.8 (3.5-5.1) mmol/L Chloride 102 (98-107) mmol/L Carbon Dioxide 24 (22-30) mmol/L Anion Gap 11 mmol/L BUN 8 L (9-20) mg/dL Creatinine 0.73 (0.66-1.25) mg/dL Est GFR (CKD-EPI)AfAm >90 (>60 ml/min/1.73 sqM) Est GFR (CKD-EPI)NonAf >90 (>60 ml/min/1.73 sqM) Glucose 142 H (74-99) mg/dL Plasma Lactic Acid Ismael (0.7-2.0) mmol/L Calcium 10.7 H (8.4-10.2) mg/dL Magnesium 1.4 L (1.6-2.3) mg/dL Total Bilirubin 1.3 (0.2-1.3) mg/dL AST 38 (17-59) U/L ALT 27 (4-49) U/L Alkaline Phosphatase 67 (38-126) U/L Troponin I (0.000-0.034) ng/mL Total Protein 7.7 (6.3-8.2) g/dL Albumin 5.1 H (3.5-5.0) g/dL Amylase 51 (30-110) U/L Lipase 92 (23-300) U/L Urine Color Urine Appearance (Clear) Urine pH (5.0-8.0) Ur Specific Dale (1.001-1.035) Urine Protein (Negative) Urine Glucose (UA) (Negative) Urine Ketones (Negative) Urine Blood (Negative) Urine Nitrite (Negative) Urine Bilirubin (Negative) Urine Urobilinogen (<2.0) mg/dL Ur Leukocyte Esterase (Negative) Serum Alcohol <10 mg/dL 11/09/23 11/09/23 11/09/23 Range/Units 03:38 03:38 04:00 WBC (3.8-10.6) k/uL RBC (4.30-5.90) m/uL Hgb (13.0-17.5) gm/dL Hct (39.0-53.0) % MCV (80.0-100.0) fL MCH (25.0-35.0) pg MCHC (31.0-37.0) g/dL RDW (11.5-15.5) % Plt Count (150-450) k/uL MPV Neutrophils % % Lymphocytes % % Monocytes % % Eosinophils % % Basophils % % Neutrophils # (1.3-7.7) k/uL Lymphocytes # (1.0-4.8) k/uL Monocytes # (0-1.0) k/uL Eosinophils # (0-0.7) k/uL Basophils # (0-0.2) k/uL PT (10.0-12.5) sec INR (<1.2) APTT (22.0-30.0) sec Sodium (137-145) mmol/L Potassium (3.5-5.1) mmol/L Chloride (98-107) mmol/L Carbon Dioxide (22-30) mmol/L Anion Gap mmol/L BUN (9-20) mg/dL Creatinine (0.66-1.25) mg/dL Est GFR (CKD-EPI)AfAm (>60 ml/min/1.73 sqM) Est GFR (CKD-EPI)NonAf (>60 ml/min/1.73 sqM) Glucose (74-99) mg/dL Plasma Lactic Acid Ismael 1.5 (0.7-2.0) mmol/L Calcium (8.4-10.2) mg/dL Magnesium (1.6-2.3) mg/dL Total Bilirubin (0.2-1.3) mg/dL AST (17-59) U/L ALT (4-49) U/L Alkaline Phosphatase (38-126) U/L Troponin I <0.012 (0.000-0.034) ng/mL Total Protein (6.3-8.2) g/dL Albumin (3.5-5.0) g/dL Amylase (30-110) U/L Lipase (23-300) U/L Urine Color Colorless Urine Appearance Clear (Clear) Urine pH 7.5 (5.0-8.0) Ur Specific Dale 1.037 H (1.001-1.035) Urine Protein Negative (Negative) Urine Glucose (UA) Negative (Negative) Urine Ketones 3+ H (Negative) Urine Blood Negative (Negative) Urine Nitrite Negative (Negative) Urine Bilirubin Negative (Negative) Urine Urobilinogen <2.0 (<2.0) mg/dL Ur Leukocyte Esterase Negative (Negative) Serum Alcohol mg/dL 11/09/23 Range/Units 05:24 WBC (3.8-10.6) k/uL RBC (4.30-5.90) m/uL Hgb (13.0-17.5) gm/dL Hct (39.0-53.0) % MCV (80.0-100.0) fL MCH (25.0-35.0) pg MCHC (31.0-37.0) g/dL RDW (11.5-15.5) % Plt Count (150-450) k/uL MPV Neutrophils % % Lymphocytes % % Monocytes % % Eosinophils % % Basophils % % Neutrophils # (1.3-7.7) k/uL Lymphocytes # (1.0-4.8) k/uL Monocytes # (0-1.0) k/uL Eosinophils # (0-0.7) k/uL Basophils # (0-0.2) k/uL PT (10.0-12.5) sec INR (<1.2) APTT (22.0-30.0) sec Sodium (137-145) mmol/L Potassium (3.5-5.1) mmol/L Chloride (98-107) mmol/L Carbon Dioxide (22-30) mmol/L Anion Gap mmol/L BUN (9-20) mg/dL Creatinine (0.66-1.25) mg/dL Est GFR (CKD-EPI)AfAm (>60 ml/min/1.73 sqM) Est GFR (CKD-EPI)NonAf (>60 ml/min/1.73 sqM) Glucose (74-99) mg/dL Plasma Lactic Acid Ismael (0.7-2.0) mmol/L Calcium (8.4-10.2) mg/dL Magnesium (1.6-2.3) mg/dL Total Bilirubin (0.2-1.3) mg/dL AST (17-59) U/L ALT (4-49) U/L Alkaline Phosphatase (38-126) U/L Troponin I <0.012 (0.000-0.034) ng/mL Total Protein (6.3-8.2) g/dL Albumin (3.5-5.0) g/dL Amylase (30-110) U/L Lipase (23-300) U/L Urine Color Urine Appearance (Clear) Urine pH (5.0-8.0) Ur Specific Dale (1.001-1.035) Urine Protein (Negative) Urine Glucose (UA) (Negative) Urine Ketones (Negative) Urine Blood (Negative) Urine Nitrite (Negative) Urine Bilirubin (Negative) Urine Urobilinogen (<2.0) mg/dL Ur Leukocyte Esterase (Negative) Serum Alcohol mg/dL Disposition Clinical Impression: Nausea and vomiting Disposition: HOME SELF-CARE Condition: Good Instructions (If sedation given, give patient instructions): Acute Nausea and Vomiting (ED) Additional Instructions: Every disease is a spectrum and a small chance still exists that a serious condition could develop, for this reason, please monitor yourself closely for new, changing or worsening symptoms, symptoms that do not improve in 72 hours, inability to keep fluids down for greater than 8 hours, vomiting blood, difficulty in breathing, fever greater than 4 days, inability to tolerate/keep down fluids or your medications, inability to follow up with outpatient providers as instructed and should you experience these symptoms or should you have any further concerns for your wellbeing please return to the ED or call 911 immediately. Please take zofran and pepcid as needed for abdominal pain and nausea control. Please drink plenty of fluids and maintain a clear liquid diet for the next 24 to 48 hours. PLEASE call your primary care physician as soon as possible to arrange / discuss plan for followup appointment. Appointment in the next 1-3 days is strongly encouraged if possible. PLEASE let us know here before you leave if there is anything further we can do to be of any assistance. Take care and feel Better! Prescriptions: Famotidine/Ca Carb/Mag Hydrox [Pepcid Complete Tablet Chew] 1 tab PO Q8HR PRN 7 Days #24 tab PRN Reason: Heartburn Ondansetron [Zofran] 4 mg PO Q8HR PRN #10 tab PRN Reason: Nausea And Vomiting Is patient prescribed a controlled substance at d/c from ED?: No Referrals: Jermain Hall MD [Primary Care Provider] - 1-2 days
[2023-11-09] MEDS: MORPHINE SULFATE 4 MG/ML SYRINGE IVP STA ×2 (03:18→04:28)
[2023-11-09] MEDS: PANTOPRAZOLE 40 MG/10 ML VIAL IVP STA (03:18)
[2023-11-09] MEDS: ONDANSETRON 4 MG/2 ML VIAL IVP STA ×2 (03:18→05:04)
[2023-11-09 03:46] LABS: Basophils % (A) 0 %; Eosinophils # (A) 0.1 k/uL (0-0.7); Eosinophils % (A) 1 %; HCT 46.5 % (39.0-53.0); HGB 16.1 gm/dL (13.0-17.5); Lymphocytes # (A) 2.1 k/uL (1.0-4.8); Lymphocytes % (A) 19 %; MCH 34.1 pg (25.0-35.0); MCHC 34.7 g/dL (31.0-37.0); MCV 98.4 fL (80.0-100.0); Mean Platelet Volume 7.9; Monocytes # (A) 0.4 k/uL (0-1.0); Monocytes % (A) 4 %; Neutrophils # (A) 8.3 k/uL (1.3-7.7); Neutrophils % (A) 75 %; Platelet Count 243 k/uL (150-450); RBC 4.73 m/uL (4.30-5.90); RDW 13.4 % (11.5-15.5)
[2023-11-09 03:55] LABS: ALT 27 U/L (4-49); AST 38 U/L (17-59); African American GFR (CKD) >90 (>60 ml/min/1.73 sqM); Albumin 5.1 g/dL (3.5-5.0); Alcohol <10 mg/dL; Alkaline Phosphatase 67 U/L (38-126); Amylase 51 U/L (30-110); Anion Gap 11 mmol/L; Blood Urea Nitrogen 8 mg/dL (9-20); Calcium 10.7 mg/dL (8.4-10.2); Carbon Dioxide 24 mmol/L (22-30); Chloride 102 mmol/L (98-107); Glucose 142 mg/dL (74-99); Lipase 92 U/L (23-300); Magnesium 1.4 mg/dL (1.6-2.3); Non-African American GFR(CKD) >90 (>60 ml/min/1.73 sqM); Potassium 3.8 mmol/L (3.5-5.1); Sodium 137 mmol/L (137-145); Total Bilirubin 1.3 mg/dL (0.2-1.3); Total Protein 7.7 g/dL (6.3-8.2)
[2023-11-09 04:06] LABS: INR 0.9 (<1.2); Partial Thromboplastin Time 24.1 sec (22.0-30.0); Prothrombin Time 10.2 sec (10.0-12.5)
[2023-11-09] MEDS: FAMOTIDINE 20 MG/2 ML VIAL IV STA (04:29)
--- NOTE | 2023-11-09 05:07 | XR ---
EXAMINATION TYPE: XR chest 2V DATE OF EXAM: 11/09/2023 COMPARISON: Chest x-ray April 23, 2023 HISTORY: Left-sided chest pain TECHNIQUE: Frontal and lateral views of the chest are obtained. FINDINGS: There is no suspicious focal air space opacity, pleural effusion, or pneumothorax seen. T he cardiac silhouette size is stable and within normal limits. The osseous structures are intact. IMPRESSION: No acute process. No significant change from prior. [facility], , 11/09/2023 5:05 AM
[2023-11-09 05:09] LABS: Appearance,Urine Clear (Clear); Bilirubin,Urine Negative (Negative); Blood,Urine Negative (Negative); Color,Urine Colorless; Glucose,Urine (UA) Negative (Negative); Ketones,Urine 3+ (Negative); Leukocyte Esterase,Urine Negative (Negative); Nitrite,Urine Negative (Negative); PH, Urine 7.5 (5.0-8.0); Protein,Urine Negative (Negative); Specific Gravity,Urine 1.037 (1.001-1.035); Urobilinogen,Urine <2.0 mg/dL (<2.0)
--- NOTE | 2023-11-09 05:10 | CT ---
EXAMINATION TYPE: CT abdomen pelvis w con DATE OF EXAM: 11/09/2023 COMPARISON: None. HISTORY: abdominal pain, nausea, vomiting, and chills. ETOH daily CT DLP: 774.3 mGycm, Automated Exposure Control for Dose Reduction was Utilized. CONTRAST: CT scan of the abdomen and pelvis is performed with oral and with IV Contrast, patient injected with 100 mL of Isovue 370. FINDINGS: LUNG BASES: No significant abnormality is appreciated. LIVER/GB: Liver is heterogeneously hypodense consistent with diffuse fatty infiltrative hepatocellula r disease. PANCREAS: Pancreas is normal in size. No significant surrounding fat stranding. SPLEEN: No significant abnormality is seen. ADRENALS: No significant abnormality is seen. KIDNEYS: Symmetric cortical medullary uptake and excretion without hydronephrosis seen bilaterally. BOWEL: No abnormal small or large bowel dilatation. PROSTATE/SEMINAL VESICLES: No gross abnormality seen. LYMPH NODES: No greater than 1cm abdominal or pelvic lymph nodes are appreciated. OSSEOUS STRUCTURES: No significant abnormality is seen. OTHER: No significant additional abnormality is seen. IMPRESSION: Complication related to acute pancreatitis are not identified. No bowel obstruction. No a cute findings are evident. [facility], , 11/09/2023 5:08 AM
[2023-11-09] MEDS: MAG HYDROX/AL HYDROX/SIMETH 30 ML, HYOSCYAMINE ELIXIR 10 ML, LIDOCAINE VISCOUS 2% 10 ML PO STA (06:13)
[2023-11-09] MEDS: PROCHLORPERAZINE 5 MG TAB PO STA (06:45)
[2023-11-09 07:03] VITALS: BP 164/106; PULSE 70; RESP 17
[2023-11-09] MEDS: ONDANSETRON 4 MG ODT STARTER PACK 2 TAB BTL PO STA (08:00)
== END 2023-11-09 08:05 | disposition home or self-care (01) ==
LOC: EC 02:25
CPT/HCPCS: 36415; 71046; 74177; 80053; 80320; 81003; 82150; 83605; 83690; 83735; 84484; 85025; 85610; 85730; 93005; 96361; 96374; 96375; 96376; 99285

== ENCOUNTER 2024-02-18 12:26 | Observation (INO) | payer BC, MEDICAID ==
[2024-02-18] MEDS ORDERED: LORazepam 2 MG/ML INJ IV PRN ×3 (13:49)
[2024-02-18 14:09] LABS: Basophils # (A) 0.1 k/uL (0-0.2); Basophils % (A) 1 %; Eosinophils # (A) 0.1 k/uL (0-0.7); Eosinophils % (A) 2 %; HCT 47.6 % (39.0-53.0); HGB 17.1 gm/dL (13.0-17.5); Lymphocytes # (A) 1.6 k/uL (1.0-4.8); Lymphocytes % (A) 19 %; MCH 33.5 pg (25.0-35.0); MCHC 35.8 g/dL (31.0-37.0); MCV 93.5 fL (80.0-100.0); Mean Platelet Volume 6.7; Monocytes # (A) 0.5 k/uL (0-1.0); Monocytes % (A) 6 %; Neutrophils # (A) 6.1 k/uL (1.3-7.7); Neutrophils % (A) 71 %; Platelet Count 260 k/uL (150-450); RBC 5.09 m/uL (4.30-5.90); RDW 13.2 % (11.5-15.5); WBC 8.6 k/uL (3.8-10.6)
[2024-02-18] MEDS: LORazepam 2 MG/ML INJ IV STA (14:10)
[2024-02-18] MEDS: SODIUM CHLORIDE 0.9% 1,000 ML IV STA ×2 (14:11→14:12)
[2024-02-18] MEDS: ONDANSETRON 4 MG/2 ML VIAL IVP STA (14:15)
[2024-02-18 14:17] LABS: ALT 47 U/L (4-49); AST 40 U/L (17-59); African American GFR (CKD) >90 (>60 ml/min/1.73 sqM); Albumin 5.2 g/dL (3.5-5.0); Alcohol <10 mg/dL; Alkaline Phosphatase 50 U/L (38-126); Amylase 46 U/L (30-110); Anion Gap 12 mmol/L; Blood Urea Nitrogen 16 mg/dL (9-20); Calcium 9.9 mg/dL (8.4-10.2); Carbon Dioxide 26 mmol/L (22-30); Chloride 100 mmol/L (98-107); Glucose 115 mg/dL (74-99); Lipase 44 U/L (23-300); Non-African American GFR(CKD) >90 (>60 ml/min/1.73 sqM); Potassium 4.2 mmol/L (3.5-5.1); Sodium 138 mmol/L (137-145); Total Bilirubin 0.9 mg/dL (0.2-1.3); Total Protein 7.8 g/dL (6.3-8.2)
[2024-02-18 14:25] LABS: Partial Thromboplastin Time 23.1 sec (22.0-30.0); Prothrombin Time 10.7 sec (10.0-12.5)
[2024-02-18] MEDS: NICOTINE 14MG/24HR PATCH TRANSDERM STA (14:35)
[2024-02-18 15:21] LABS: Appearance,Urine Clear (Clear); Bilirubin,Urine Negative (Negative); Blood,Urine Negative (Negative); Color,Urine Yellow; Glucose,Urine (UA) Negative (Negative); Ketones,Urine Negative (Negative); Leukocyte Esterase,Urine Negative (Negative); Nitrite,Urine Negative (Negative); PH, Urine 5.5 (5.0-8.0); Protein,Urine Trace (Negative); Specific Gravity,Urine 1.025 (1.001-1.035); Urobilinogen,Urine <2.0 mg/dL (<2.0)
[2024-02-18 15:34] LABS: Amphetamine Screen,Urine Not Detected (NotDetected); Barbiturate Screen,Urine Not Detected (NotDetected); Benzodiazepines Screen,Urine Not Detected (NotDetected); Cocaine Screen,Urine Not Detected (NotDetected); Methadone Screen, Urine Not Detected (NotDetected); Opiate Screen,Urine Not Detected (NotDetected); Oxycodone Screen, Urine Not Detected (NotDetected); Phencyclidine Screen,Urine Not Detected (NotDetected); Tricyclic Antidepressant,Urine Not Detected (NotDetected); Urn Cannabinoid Scrn Not Detected (NotDetected)
[2024-02-18] MEDS ORDERED: ONDANSETRON 4 MG/2 ML VIAL IVP PRN (15:48)
[2024-02-18] MEDS ORDERED: NALOXONE 0.4 MG/ML 1 ML VIAL IV PRN (15:48)
--- NOTE | 2024-02-18 15:54 | ED ---
General Adult HPI - General Chief complaint: Nausea/Vomiting/Diarrhea Stated complaint: NVD Time Seen by Provider: 02/18/24 13:48 Source: patient, RN notes reviewed, old records reviewed Mode of arrival: ambulatory - History of Present Illness Initial comments: Is a 38-year-old male presents emergency department complaining of alcohol withdrawals with nausea and vomiting. Has a history of daily alcohol abuse and states he has a history of delirium tremens. States last drink was this morning at approximately 230 or 3 AM. Endorses agitation, anxiety, mild headache, hand tremors, tongue tremors. Endorses mild nausea as well. Presents for further evaluation. Denies chest pain or shortness of breath. Denies any significant abdominal discomfort. Has had a few episodes of nonbilious nonbloody emesis. Denies any diarrhea or constipation. Presents as he states he should be admitted for detox due to his history of DTs. - Related Data Home Medications Medication Instructions Recorded Confirmed Cholecalciferol [Vitamin D3 (25 50 mcg PO DAILY 04/26/22 04/26/22 Mcg = 1000 Iu)] Cyanocobalamin (Vitamin B-12) 1,000 mcg PO DAILY 04/26/22 04/26/22 [Vitamin B-12] Ibuprofen [Motrin Ib] 400 mg PO Q6H PRN 04/26/22 04/26/22 [place]-3/Dha/Epa/Fish Oil [Fish Oil 1 cap PO DAILY 04/26/22 04/26/22 1,000 mg Softgel] Previous Rx's Medication Instructions Recorded Famotidine/Ca Carb/Mag Hydrox 1 tab PO Q8HR PRN 7 Days #24 tab 11/09/23 [Pepcid Complete Tablet Chew] Ondansetron [Zofran] 4 mg PO Q8HR PRN #10 tab 11/09/23 Allergies Allergy/AdvReac Type Severity Reaction Status Date / Time No Known Allergies Allergy Verified 02/18/24 12:35 Review of Systems ROS Statement: Those systems with pertinent positive or pertinent negative responses have been documented in the HPI. Review of Systems: CONST: Denies fever EYES: Denies blurry vision ENT: Denies nasal congestion C/V: Denies Chest pain RESP: Denies shortness of breath GI: Endorses mild epigastric abdominal discomfort. : Denies dysuria SKIN: Denies rash. MSK: Denies joint pain. NEURO: Denies headache ROS Other: All systems not noted in ROS Statement are negative. Past Medical History Past Medical History: No Reported History History of Any Multi-Drug Resistant Organisms: None Reported Past Surgical History: No Surgical Hx Reported Past Psychological History: No Psychological Hx Reported, Depression Smoking Status: Current every day smoker Past Alcohol Use History: Daily Past Drug Use History: None Reported General Exam - General Exam Comments Initial Comments: General: Appears in mild to moderate alcohol withdrawals. CIWA approximately 7- 10. HEAD: Normal with no signs of head trauma. EYES: PERRLA, EOMI, conjunctiva normal, no discharge. Pupils are 3 mm and equal bilaterally. ENT: Hearing grossly intact, normal oropharynx. RESPIRATORY: Clear breath sounds bilaterally. No wheezes, rales, or rhonchi. C/V: Regular rate and rhythm. S1 and S2 auscultated, no edema, peripheral pulses 2+ and intact throughout ABD: Abd is soft, nontender, nondistended EXT:no obvious deformity. SKIN: No rashes or lesions observed on exposed skin. NEURO: Alert and oriented x 4. CIWA approximately 7-10. Course Vital Signs 02/18/24 02/18/24 12:31 15:50 Temperature 98.4 F Pulse Rate 98 85 Respiratory 18 20 Rate Blood Pressure 177/115 147/99 O2 Sat by Pulse 99 97 Oximetry Medical Decision Making - Medical Decision Making Was pt. sent in by a medical professional or institution (SANA Lockett, MARKET DIRECTOR, urgent care, hospital, or fci...) When possible be specific @ -No Did you speak to anyone other than the patient for history (EMS, parent, family, police, friend...)? What history was obtained from this source @ -No Did you review nursing and triage notes (agree or disagree)? Why? @ -I reviewed and agree with nursing and triage notes Were old charts reviewed (outside hosp., previous admission, EMS record, old EKG, old radiological studies, urgent care reports/EKG's, fci records)? Report findings @ -No old charts were reviewed Differential Diagnosis (chest pain, altered mental status, abdominal pain women, abdominal pain men, vaginal bleeding, weakness, fever, dyspnea, syncope, headache, dizziness, GI bleed, back pain, seizure, CVA, palpatations, mental health, musculoskeletal)? @ -Alcohol withdrawals, dehydration, electrolyte abnormality, alcohol intoxication. This list is not all inclusive. EKG interpreted by me (3pts min.). @ -As above X-rays interpreted by me (1pt min.). @ -None done CT interpreted by me (1pt min.). @ -None done U/S interpreted by me (1pt. min.). @ -None done What testing was considered but not performed or refused? (CT, X-rays, U/S, labs)? Why? @ -None What meds were considered but not given or refused? Why? @ -None Did you discuss the management of the patient with other professionals (indira lui i.e. , PA, MARKET DIRECTOR, lab, RT, psych nurse, social work program coordinator, director of alumni relations, teacher, registration officer, case making machine operator)? Give summary @ -I spoke with the admitting provider, [facility] Dr. Jones. He ac cepted the admission. Was smoking cessation discussed for >3mins.? @ -No Was critical care preformed (if so, how long)? @ -No Were there social determinants of health that impacted care today? How? (Homelessness, low income, unemployed, alcoholism, drug addiction, transportation, low edu. Level, literacy, decrease access to med. care, prison, rehab)? @ -No Was there de-escalation of care discussed even if they declined (Discuss DNR or withdrawal of care, Hospice)? DNR status @ -No What co-morbidities impacted this encounter? (DM, HTN, Smoking, COPD, CAD, Cancer, CVA, ARF, Chemo, Hep., AIDS, mental health diagnosis, sleep apnea, morbid obesity)? @ -None Was patient admitted / discharged? Hospital course, mention meds given and route, prescriptions, significant lab abnormalities, going to OR and other pertinent info. @ -Based on the patient's presentation and physical exam, patient presents emergency department complaining of alcohol withdrawal symptoms. Does have a history of delirium tremens. Presents as he is concerned he may be starting to go into withdrawals and is concerned about potential delirium tremens. Last drink was at 230 this morning. Patient will be given a dose of Ativan, IV Zofran, IV fluids. Will obtain basic workup as well as an EKG. Patient was in agreement this plan. EKG shows no signs of acute ischemia. Laboratory studies within acceptable limits. Alcohol level is undetectable. On reevaluation, symptoms are improved following the Ativan. Due to his history, patient will be admitted to observation as he states he will not continue alcohol use if he goes home. He was in agreement this plan. We will continue the patient on [facility] protocol. I spoke with the admitting provider, [facility] Dr. Jones. He accepted the admission. Undiagnosed new problem with uncertain prognosis? @ -No Drug Therapy requiring intensive monitoring for toxicity (Heparin, Nitro, Insulin, Cardizem)? @ -No Were any procedures done? @ -No Diagnosis/symptom? @ -Alcohol withdrawal Acute, or Chronic, or Acute on Chronic? @ -Acute Uncomplicated (without systemic symptoms) or Complicated (systemic symptoms)? @ -Complicated Side effects of treatment? @ -No Exacerbation, Progression, or Severe Exacerbation? @ -No Poses a threat to life or bodily function? How? (Chest pain, USA, PA, pneumonia, PE, COPD, DKA, ARF, appy, cholecystitis, CVA, Diverticulitis, Homicidal, Suicidal, threat to staff... and all critical care pts) @ -Potentially, yes - Lab Data Result diagrams: 02/18/24 13:59 02/18/24 13:59 Lab Results 02/18/24 02/18/24 02/18/24 Range/Units 13:59 13:59 13:59 WBC 8.6 (3.8-10.6) k/uL RBC 5.09 (4.30-5.90) m/uL Hgb 17.1 (13.0-17.5) gm/dL Hct 47.6 (39.0-53.0) % MCV 93.5 (80.0-100.0) fL MCH 33.5 (25.0-35.0) pg MCHC 35.8 (31.0-37.0) g/dL RDW 13.2 (11.5-15.5) % Plt Count 260 (150-450) k/uL MPV 6.7 Neutrophils % 71 % Lymphocytes % 19 % Monocytes % 6 % Eosinophils % 2 % Basophils % 1 % Neutrophils # 6.1 (1.3-7.7) k/uL Lymphocytes # 1.6 (1.0-4.8) k/uL Monocytes # 0.5 (0-1.0) k/uL Eosinophils # 0.1 (0-0.7) k/uL Basophils # 0.1 (0-0.2) k/uL PT 10.7 (10.0-12.5) sec INR 1.0 (<1.2) APTT 23.1 (22.0-30.0) sec Sodium 138 (137-145) mmol/L Potassium 4.2 (3.5-5.1) mmol/L Chloride 100 (98-107) mmol/L Carbon Dioxide 26 (22-30) mmol/L Anion Gap 12 mmol/L BUN 16 (9-20) mg/dL Creatinine 0.84 (0.66-1.25) mg/dL Est GFR (CKD-EPI)AfAm >90 (>60 ml/min/1.73 sqM) Est GFR (CKD-EPI)NonAf >90 (>60 ml/min/1.73 sqM) Glucose 115 H (74-99) mg/dL Calcium 9.9 (8.4-10.2) mg/dL Total Bilirubin 0.9 (0.2-1.3) mg/dL AST 40 (17-59) U/L ALT 47 (4-49) U/L Alkaline Phosphatase 50 (38-126) U/L Total Protein 7.8 (6.3-8.2) g/dL Albumin 5.2 H (3.5-5.0) g/dL Amylase 46 (30-110) U/L Lipase 44 (23-300) U/L Urine Color Urine Appearance (Clear) Urine pH (5.0-8.0) Ur Specific [place] (1.001-1.035) Urine Protein (Negative) Urine Glucose (UA) (Negative) Urine Ketones (Negative) Urine Blood (Negative) Urine Nitrite (Negative) Urine Bilirubin (Negative) Urine Urobilinogen (<2.0) mg/dL Ur Leukocyte Esterase (Negative) Urine Opiates Screen (NotDetected) Ur Oxycodone Screen (NotDetected) Urine Methadone Screen (NotDetected) Ur Barbiturates Screen (NotDetected) U Tricyclic Antidepress (NotDetected) Ur Phencyclidine Scrn (NotDetected) Ur Amphetamines Screen (NotDetected) U Methamphetamines Scrn (NotDetected) U Benzodiazepines Scrn (NotDetected) Urine Cocaine Screen (NotDetected) U Marijuana (THC) Screen (NotDetected) Serum Alcohol <10 mg/dL 02/18/24 02/18/24 Range/Units 15:14 15:14 WBC (3.8-10.6) k/uL RBC (4.30-5.90) m/uL Hgb (13.0-17.5) gm/dL Hct (39.0-53.0) % MCV (80.0-100.0) fL MCH (25.0-35.0) pg MCHC (31.0-37.0) g/dL RDW (11.5-15.5) % Plt Count (150-450) k/uL MPV Neutrophils % % Lymphocytes % % Monocytes % % Eosinophils % % Basophils % % Neutrophils # (1.3-7.7) k/uL Lymphocytes # (1.0-4.8) k/uL Monocytes # (0-1.0) k/uL Eosinophils # (0-0.7) k/uL Basophils # (0-0.2) k/uL PT (10.0-12.5) sec INR (<1.2) APTT (22.0-30.0) sec Sodium (137-145) mmol/L Potassium (3.5-5.1) mmol/L Chloride (98-107) mmol/L Carbon Dioxide (22-30) mmol/L Anion Gap mmol/L BUN (9-20) mg/dL Creatinine (0.66-1.25) mg/dL Est GFR (CKD-EPI)AfAm (>60 ml/min/1.73 sqM) Est GFR (CKD-EPI)NonAf (>60 ml/min/1.73 sqM) Glucose (74-99) mg/dL Calcium (8.4-10.2) mg/dL Total Bilirubin (0.2-1.3) mg/dL AST (17-59) U/L ALT (4-49) U/L Alkaline Phosphatase (38-126) U/L Total Protein (6.3-8.2) g/dL Albumin (3.5-5.0) g/dL Amylase (30-110) U/L Lipase (23-300) U/L Urine Color Yellow Urine Appearance Clear (Clear) Urine pH 5.5 (5.0-8.0) Ur Specific [place] 1.025 (1.001-1.035) Urine Protein Trace H (Negative) Urine Glucose (UA) Negative (Negative) Urine Ketones Negative (Negative) Urine Blood Negative (Negative) Urine Nitrite Negative (Negative) Urine Bilirubin Negative (Negative) Urine Urobilinogen <2.0 (<2.0) mg/dL Ur Leukocyte Esterase Negative (Negative) Urine Opiates Screen Not Detected (NotDetected) Ur Oxycodone Screen Not Detected (NotDetected) Urine Methadone Screen Not Detected (NotDetected) Ur Barbiturates Screen Not Detected (NotDetected) U Tricyclic Antidepress Not Detected (NotDetected) Ur Phencyclidine Scrn Not Detected (NotDetected) Ur Amphetamines Screen Not Detected (NotDetected) U Methamphetamines Scrn Not Detected (NotDetected) U Benzodiazepines Scrn Not Detected (NotDetected) Urine Cocaine Screen Not Detected (NotDetected) U Marijuana (THC) Screen Not Detected (NotDetected) Serum Alcohol mg/dL - EKG Data -: EKG Interpreted by Me EKG Comments: 12-lead Electrocardiogram Interpretation Note EKG was reviewed and interpreted by myself. 12-lead ECG performed at 1512 is interpreted by me as revealing normal sinus rhythm at a rate of 86 beats per minute. [place] is normal. CA interval is 151 ms, QRS durations 109 ms, QTc is 405 ms.. There were no ST or T wave abnormalities to suggest myocardial is chemia or injury. R wave progression across the precordium was satisfactory. By my interpretation this EKG is non-diagnostic for acute ischemia. Disposition Clinical Impression: Alcohol withdrawal Disposition: ADMITTED IP TO THIS HOSP Condition: Stable Referrals: Jermain Hall MD [Primary Care Provider] - 1-2 days Time of Disposition: 15:42
[2024-02-18] MEDS: SODIUM CHLORIDE 0.9% 1,000 ML IV SCH (16:01)
--- NOTE | 2024-02-18 16:29 | P.HPIM ---
History of Present Illness H&P Date: 02/18/24 38 year old M with PMH of EtOH abuse presents to the ED for EtOH withdrawal. Last drink was around 2AM. Drinks 1/2 fifth - fifth hard liquor daily. Reports myalgias, tremors, nausea and vomiting, diaphoresis. No history of seizures. He denies any chest pain, SOB, palpitations, lightheadedness, changes in urination or bowel habits. In the ED he underwent extensive evaluation. BP 177/115, HR 98, RR 18, T 98.4F, 99% on RA. CBC, Coag panel, CMP significant for glu 115, total protein 5.2. Amylase 46, Lipase 44. UA trace protein. UDS neg. EtOH neg. EKG sinus rhythm. Patient is admitted for further management of symptoms. General: non toxic, no distress, appears at stated age Derm: warm, dry Head: atraumatic, normocephalic, symmetric Eyes: EOMI, no lid lag, anicteric sclera Mouth: no lip lesion, mucus membranes moist Cardiovascular: S1S2 tachy, no murmur Lungs: CTA bilateral, no rhonchi, no rales , no accessory muscle use Ext: no gross muscle atrophy, no edema, no contractures Neuro: no focal neuro deficits Psych: Alert, oriented, appropriate affect Based on my assessment of this patient, this patient meets a high complexity level of care. EtOH withdrawal Hypertensive urgency Nicotine dependence CIWA protocol with Ativan as needed. Start Librium 25 mg PO TID. Zofran 4 mg IV TID PRN N/V. Telemetry monitoring. Habitrol 14 mg TRANSDERM daily. Blood pressure expected to improve with better control of withdrawal symptoms. CODE STATUS: FULL CODE DVT Prophylaxis: SCD GI Prophylaxis: I have reviewed the following jury consultant notes: ED note. I have reviewed the results of the following tests: As above. I have ordered the following tests: As above. I have discussed the care of this patient with the following independent historian: I have independently interpreted the following test below: EKG. I have discussed the management of this patient with the following physician: Past Medical History Past Medical History: No Reported History History of Any Multi-Drug Resistant Organisms: None Reported Past Surgical History: No Surgical Hx Reported Past Psychological History: No Psychological Hx Reported, Depression Smoking Status: Current every day smoker Past Alcohol Use History: Daily Past Drug Use History: None Reported Medications and Allergies Home Medications Medication Instructions Recorded Confirmed Type Cholecalciferol [Vitamin D3 (25 50 mcg PO DAILY 04/26/22 04/26/22 History Mcg = 1000 Iu)] Cyanocobalamin (Vitamin B-12) 1,000 mcg PO DAILY 04/26/22 04/26/22 History [Vitamin B-12] Ibuprofen [Motrin Ib] 400 mg PO Q6H PRN 04/26/22 04/26/22 History [place]-3/Dha/Epa/Fish Oil [Fish Oil 1 cap PO DAILY 04/26/22 04/26/22 History 1,000 mg Softgel] Famotidine/Ca Carb/Mag Hydrox 1 tab PO Q8HR PRN 7 Days #24 tab 11/09/23 Rx [Pepcid Complete Tablet Chew] Ondansetron [Zofran] 4 mg PO Q8HR PRN #10 tab 11/09/23 Rx Allergies Allergy/AdvReac Type Severity Reaction Status Date / Time No Known Allergies Allergy Verified 02/18/24 12:35 Physical Exam Vitals: Vital Signs Temp Pulse Resp BP Pulse Ox 02/18/24 16:07 82 14 144/100 96 02/18/24 16:03 98.3 F 85 161/100 96 02/18/24 15:50 85 20 147/99 97 02/18/24 12:31 98.4 F 98 18 177/115 99 Intake and Output 02/18/24 02/18/24 02/18/24 06:59 14:59 22:59 Other: Weight 83.915 kg Results CBC & Chem 7: 02/18/24 13:59 02/18/24 13:59 Labs: Abnormal Lab Results - Last 24 Hours (Table) 02/18/24 02/18/24 Range/Units 13:59 15:14 Glucose 115 H (74-99) mg/dL Albumin 5.2 H (3.5-5.0) g/dL Urine Protein Trace H (Negative)
[2024-02-18] MEDS: chlordiazePOXIDE 25 MG CAP PO SCH (16:47)
[2024-02-18] MEDS: traZODone HCL 50 MG TAB PO SCH (20:15)
[2024-02-19 08:14] VITALS: BP 115/78; PULSE 75; RESP 16; TEMP 97.6
[2024-02-19] MEDS: IBUPROFEN 400 MG TAB PO PRN (09:02)
--- NOTE | 2024-02-19 12:01 | P.DS ---
Providers Date of admission: 02/18/24 15:51 Expected date of discharge: 02/19/24 Attending physician: John Jones Primary care physician: [facility]ermain [facility] Course: 38 year old M with PMH of EtOH abuse presents to the ED for EtOH withdrawal. Last drink was around 2AM. Drinks 1/2 fifth - fifth hard liquor daily. Reports myalgias, tremors, nausea and vomiting, diaphoresis. No history of seizures. He denies any chest pain, SOB, palpitations, lightheadedness, changes in urination or bowel habits. In the ED he underwent extensive evaluation. BP 177/115, HR 98, RR 18, T 98.4F, 99% on RA. CBC, Coag panel, CMP significant for glu 115, total protein 5.2. Amylase 46, Lipase 44. UA trace protein. UDS neg. EtOH neg. EKG sinus rhythm. Patient is admitted for further management of symptoms. Started on CIWA protocol and given Ativan as needed. Blood pressure improved with treatment of alcohol withdrawal. / Patient was seen and examined. Reports improved symptoms. Tolerating diet well. He does have an appt on Friday for alcohol detox. Does not want to drink again. Discharge Plans: Patient agreeable for a trial of Ativan PO PRN for withdrawal symptoms. Advised NOT to mix Ativan and EtOH as it could lead to respiratory depression and sudden . Follow up with PCP within 1-2 days of discharge. Patient verbalized understanding of this plan. General: non toxic, no distress, appears at stated age Derm: warm, dry Head: atraumatic, normocephalic, symmetric Eyes: EOMI, no lid lag, anicteric sclera Mouth: no lip lesion, mucus membranes moist Cardiovascular: S1S2 reg, no murmur Lungs: CTA bilateral, no rhonchi, no rales , no accessory muscle use Ext: no gross muscle atrophy, no edema, no contractures Neuro: no focal neuro deficits Psych: Alert, oriented, appropriate affect Discharge Diagnosis: EtOH withdrawal Hypertensive urgency Nicotine dependence This complex discharge took 35 minutes to complete. Patient Condition at Discharge: Stable Plan - Discharge Summary New Discharge Prescriptions: New LORazepam [Ativan] 1 mg PO TID PRN 3 Days #9 tab PRN Reason: Alcohol Withdrawal Continue [place]-3/Dha/Epa/Fish Oil [Fish Oil 1,000 mg Softgel] 1 cap PO DAILY Cholecalciferol [Vitamin D3 (25 Mcg = 1000 Iu)] 25 mcg PO DAILY Multivitamins, Thera [Multivitamin (formulary)] 1 tab PO DAILY Calcium Carbonate [Calcium] 600 mg PO DAILY Discharge Medication List Cholecalciferol [Vitamin D3 (25 Mcg = 1000 Iu)] 25 mcg PO DAILY 04/26/22 [History] [place]-3/Dha/Epa/Fish Oil [Fish Oil 1,000 mg Softgel] 1 cap PO DAILY 04/26/22 [History] Calcium Carbonate [Calcium] 600 mg PO DAILY 02/18/24 [History] Multivitamins, Thera [Multivitamin (formulary)] 1 tab PO DAILY 02/18/24 [History] LORazepam [Ativan] 1 mg PO TID PRN 3 Days #9 tab 02/19/24 [Rx] Follow up Appointment(s)/Referral(s): Jermain Hall MD [Primary Care Provider] - 1-2 days Patient Instructions/Handouts: Alcohol Withdrawal (ED), Alcohol Withdrawal (DC) Activity/Diet/Wound Care/Special Instructions: DO NOT MIX ALCOHOL AND LORAZEPAM IT CAN LEAD TO SUDDEN . Discharge/Stand Alone Forms: AA Meetings [address] [facility] [address] 24 - [facility], AA Meetings [place], Who Do I Call?, Community Resources, Outpatient Counseling, In Substance Abuse Facilities Discharge Disposition: HOME SELF-CARE
== END 2024-02-19 11:22 | disposition home or self-care (01) ==
LOC: EC 12:26 → 6NMEDSUR 15:51 → UNDODISOB 21:01 → 6NMEDSUR 21:08
PROVIDERS: ADMIT Student in an Organized Health Care Education/Training Program; ATTEND Student in an Organized Health Care Education/Training Program
DX: F10.139 Alcohol abuse with withdrawal, unspecified (principal); Y90.0 Blood alcohol level of less than 20 mg/100 ml; I16.0 Hypertensive urgency; M79.10 Myalgia, unspecified site; F17.200 Nicotine dependence, unspecified, uncomplicated; Z79.899 Other long term (current) drug therapy
CPT/HCPCS: 96374; 96375; 99285; 36415; 93005; 80053; 82150; 83690; 85025; 85610; 85730; 81003; 80306; 80320; G0378 ×2; S4990; J2060; J2405

== ENCOUNTER 2024-03-15 07:20 | Observation (INO) | payer MEDICAID ==
[2024-03-15] MEDS ORDERED: LORazepam 2 MG/ML INJ IV PRN ×2 (07:59)
--- NOTE | 2024-03-15 08:03 | ED ---
General Adult HPI - General Chief complaint: Alcohol Stated complaint: Nausea, Vomiting Time Seen by Provider: 03/15/24 07:44 Source: patient Mode of arrival: ambulatory Limitations: no limitations - History of Present Illness Initial comments: Dictation was produced using [employer] dictation software. please excuse any grammatical, word or spelling errors. Chief Complaint: 38-year-old male presents emergency department for alcohol detoxification History of Present Illness: Patient 38-year-old male drinks large amounts of beer daily. Patient has had withdrawal in the past. States that he has had head withdrawal requiring hospital admissions. Last alcohol intake was approximately an hour prior to arrival. Patient feeling remorseful for his alc ohol abuse. Denies any withdrawal symptoms at this time. The ROS documented in this emergency department record has been reviewed and confirmed by me. Those systems with pertinent positive or negative responses have been documented in the HPI. All other systems are other negative and/or noncontributory. - Related Data Home Medications Medication Instructions Recorded Confirmed Cholecalciferol [Vitamin D3 (25 25 mcg PO DAILY 04/26/22 03/15/24 Mcg = 1000 Iu)] [place]-3/Dha/Epa/Fish Oil [Fish Oil 1 cap PO DAILY 04/26/22 03/15/24 1,000 mg Softgel] Calcium Carbonate [Calcium] 600 mg PO DAILY 02/18/24 03/15/24 Multivitamins, Thera [Multivitamin 1 tab PO DAILY 02/18/24 03/15/24 (formulary)] Allergies Allergy/AdvReac Type Severity Reaction Status Date / Time No Known Allergies Allergy Verified 03/15/24 10:08 Review of Systems ROS Statement: Those systems with pertinent positive or pertinent negative responses have been documented in the HPI. ROS Other: All systems not noted in ROS Statement are negative. Past Medical History Past Medical History: No Reported History Additional Past Medical History / Comment(s): alcohol History of Any Multi-Drug Resistant Organisms: None Reported Past Surgical History: No Surgical Hx Reported Past Psychological History: No Psychological Hx Reported, Depression Smoking Status: Current every day smoker Past Alcohol Use History: Abuse, Daily Past Drug Use History: None Reported General Exam - General Exam Comments Initial Comments: PHYSICAL EXAM: General Impression: Alert and oriented x3, not in acute distress HEENT: Normocephalic atraumatic, extra-ocular movements intact, pupils equal and reactive to light bilaterally, mucous membranes moist. Cardiovascular: Heart regular rate and rhythm Chest: Able to complete full sentences, no retractions, no tachypnea Abdomen: abdomen soft, non-tender, non-distended, no organomegaly Musculoskeletal: Pulses present and equal in all extremities, no peripheral edema Motor: no focal deficits noted Neurological: CN II-XII grossly intact, no focal motor or sensory deficits noted Skin: Intact with no visualized rashes Psych: Normal affect and mood Limitations: no limitations Course Vital Signs 03/15/24 03/15/24 07:35 09:35 Temperature 98.0 F 98.2 F Pulse Rate 98 89 Respiratory 18 16 Rate Blood Pressure 168/107 O2 Sat by Pulse 97 96 Oximetry EKG Findings - EKG Comments: EKG Findings:: My EKG interpretation: Ventricular rate 90, sinus rhythm,. 155, cures 107, QTc 402. No CO prolongation, no QTC prolongation, no ST or T-wave changes noted. Overall, this EKG is unremarkable Medical Decision Making - Medical Decision Making Was pt. sent in by a medical professional or institution (, PA, LUMBER SORTER MACHINE, urgent care, hospital, or senior living...) When possible be specific @ -No Did you speak to anyone other than the patient for history (EMS, parent, family, police, friend...)? What history was obtained from this source @ -No Did you review nursing and triage notes (agree or disagree)? Why? @ -I reviewed and agree with nursing and triage notes Were old charts reviewed (outside hosp., previous admission, EMS record, old EKG, old radiological studies, urgent care reports/EKG's, senior living records)? Report findings @ -No old charts were reviewed Differential Diagnosis (chest pain, altered mental status, abdominal pain women, abdominal pain men, vaginal bleeding, musculoskeletal, weakness, fever, dyspnea, syncope, headache, dizziness, GI bleed, back pain, seizure, CVA, palpatations, mental health)? @ -Differential Weakness: Hypoglycemia, shock, sepsis, hyponatremia, anemia, infection, [place], ETOH, adverse medicine reaction, overdose, stroke, this is not meant to be an all-inclusive list. EKG interpreted by me (3pts min.). @ -See above X-rays interpreted by me (1pt min.). @ -None done CT interpreted by me (1pt min.). @ -None done U/S interpreted by me (1pt. min.). @ -None done What testing was considered but not performed or refused? (CT, X-rays, U/S, labs)? Why? @ -None What meds were considered but not given or refused? Why? @ -None Was smoking cessation discussed for >3mins.? @ -No Were there social determinants of health that impacted care today? How? (Homelessness, low income, unemployed, alcoholism, drug addiction, transportation, low edu. Level, literacy, decrease access to med. care, penitentiary, rehab)? @ -No Was there de-escalation of care discussed even if they declined (Discuss DNR or withdrawal of care, Hospice)? DNR status @ -No What co-morbidities impacted this encounter? (DM, HTN, Smoking, COPD, CAD, Cancer, CVA, ARF, Chemo, Hep., AIDS, mental health diagnosis, sleep apnea, morbid obesity)? @ -Alcohol dependence Was patient admitted / discharged? Hospital course, mention meds given and route, prescriptions, significant lab abnormalities, going to OR and other pertinent info. @ -38-year-old male states that he is in the emergency department today for impending alcohol withdrawal. Drinks large amounts of alcohol daily. Vital signs stable. Physical examination shows well-appearing male in no acute distress. Labs shows findings within acceptable limits. Given patient's history of withdrawals he will be admitted for medical monitoring and alcohol withdrawal treatment. Did you discuss the management of the patient with other professionals (professionals i.e. , PA, LUMBER SORTER MACHINE, lab, RT, psych nurse, child welfare social worker, entertainment lawyer, teacher, chief informatics officer, block and case maker)? Give summary @ -Case discussed with hospitalist for admission Was critical care preformed (if so, how long)? @ -No Undiagnosed new problem with uncertain prognosis? @ -No Drug Therapy requiring intensive monitoring for toxicity (Heparin, Nitro, Insulin, Cardizem)? @ -No Were any procedures done? @ -No Diagnosis/symptom? Acute, or Chronic, or Acute on Chronic? Uncomplicated (without systemic symptoms) or Complicated (systemic symptoms)? @ -Alcohol withdrawal Side effects of treatment? @ -No Exacerbation, Progression, or Severe Exacerbation? @ -No Poses a threat to life or bodily function? How? (Chest pain, [place], [place], pneumonia, PE, COPD, DKA, ARF, appy, cholecystitis, CVA, Diverticulitis, Homicidal, Suicidal, threat to staff... and all critical care pts) @ -Yes - Lab Data Result diagrams: 03/15/24 08:34 03/15/24 08:34 Lab Results 03/15/24 03/15/24 Range/Units 08:34 08:34 WBC 7.2 (3.8-10.6) k/uL RBC 4.99 (4.30-5.90) m/uL Hgb 16.0 (13.0-17.5) gm/dL Hct 46.6 (39.0-53.0) % MCV 93.4 (80.0-100.0) fL MCH 32.0 (25.0-35.0) pg MCHC 34.3 (31.0-37.0) g/dL RDW 12.8 (11.5-15.5) % Plt Count 259 (150-450) k/uL MPV 6.6 Neutrophils % 56 % Lymphocytes % 32 % Monocytes % 6 % Eosinophils % 3 % Basophils % 1 % Neutrophils # 4.1 (1.3-7.7) k/uL Lymphocytes # 2.3 (1.0-4.8) k/uL Monocytes # 0.4 (0-1.0) k/uL Eosinophils # 0.2 (0-0.7) k/uL Basophils # 0.1 (0-0.2) k/uL Sodium 139 (137-145) mmol/L Potassium 4.0 (3.5-5.1) mmol/L Chloride 99 (98-107) mmol/L Carbon Dioxide 28 (22-30) mmol/L Anion Gap 12 mmol/L BUN 17 (9-20) mg/dL Creatinine 0.84 (0.66-1.25) mg/dL Est GFR (CKD-EPI)AfAm >90 (>60 ml/min/1.73 sqM) Est GFR (CKD-EPI)NonAf >90 (>60 ml/min/1.73 sqM) Glucose 111 H (74-99) mg/dL Calcium 9.6 (8.4-10.2) mg/dL Magnesium 1.7 (1.6-2.3) mg/dL Total Bilirubin 0.5 (0.2-1.3) mg/dL AST 30 (17-59) U/L ALT 40 (4-49) U/L Alkaline Phosphatase 54 (38-126) U/L Total Protein 6.9 (6.3-8.2) g/dL Albumin 4.6 (3.5-5.0) g/dL Serum Alcohol 110 mg/dL Disposition Clinical Impression: Alcohol withdrawal Disposition: ADMITTED IP TO THIS HOSP Condition: Fair Referrals: Jermain Hall MD [Primary Care Provider] - 1-2 days Decision Time: 11:01
[2024-03-15 08:40] LABS: Basophils # (A) 0.1 k/uL (0-0.2); Basophils % (A) 1 %; Eosinophils # (A) 0.2 k/uL (0-0.7); Eosinophils % (A) 3 %; HCT 46.6 % (39.0-53.0); Lymphocytes # (A) 2.3 k/uL (1.0-4.8); Lymphocytes % (A) 32 %; MCHC 34.3 g/dL (31.0-37.0); MCV 93.4 fL (80.0-100.0); Mean Platelet Volume 6.6; Monocytes # (A) 0.4 k/uL (0-1.0); Monocytes % (A) 6 %; Neutrophils # (A) 4.1 k/uL (1.3-7.7); Neutrophils % (A) 56 %; Platelet Count 259 k/uL (150-450); RBC 4.99 m/uL (4.30-5.90); RDW 12.8 % (11.5-15.5); WBC 7.2 k/uL (3.8-10.6)
[2024-03-15 08:56] LABS: ALT 40 U/L (4-49); AST 30 U/L (17-59); African American GFR (CKD) >90 (>60 ml/min/1.73 sqM); Albumin 4.6 g/dL (3.5-5.0); Alcohol 110 mg/dL; Alkaline Phosphatase 54 U/L (38-126); Anion Gap 12 mmol/L; Blood Urea Nitrogen 17 mg/dL (9-20); Calcium 9.6 mg/dL (8.4-10.2); Carbon Dioxide 28 mmol/L (22-30); Chloride 99 mmol/L (98-107); Glucose 111 mg/dL (74-99); Magnesium 1.7 mg/dL (1.6-2.3); Non-African American GFR(CKD) >90 (>60 ml/min/1.73 sqM); Sodium 139 mmol/L (137-145); Total Bilirubin 0.5 mg/dL (0.2-1.3); Total Protein 6.9 g/dL (6.3-8.2)
[2024-03-15] MEDS ORDERED: NALOXONE 0.4 MG/ML 1 ML VIAL IV PRN (10:44)
[2024-03-15] MEDS: SODIUM CHLORIDE 0.9% 1,000 ML IV SCH (11:26)
[2024-03-15] MEDS: NICOTINE 21MG/24HR PATCH TRANSDERM STA (13:55)
[2024-03-15] MEDS ORDERED: cloNIDine HCL 0.1 MG TAB PO PRN (14:26)
[2024-03-15] MEDS: cloNIDine HCL 0.1 MG TAB PO SCH (14:47)
[2024-03-15] MEDS: THIAMINE 100 MG TAB PO SCH (17:59)
[2024-03-15] MEDS: LORazepam 2 MG/ML INJ IV PRN (18:55)
--- NOTE | 2024-03-16 01:34 | HP ---
HISTORY AND PHYSICAL CHIEF COMPLAINT: Alcohol withdrawal symptoms. HISTORY OF PRESENT ILLNESS: A 38-year-old gentleman with a past medical history of multiple medical problems including significant alcohol intake, was complaining of withdrawal symptoms. The patient had last alcohol about an hour prior to admission. Alcohol level was found to be 110. There is no history of fever, rigors, or chills. No headache, loss of consciousness, or seizures. PAST MEDICAL HISTORY: History of depression and nicotine dependence. Rest of the history noted. HOME MEDICATIONS: Fish oil. Dose and rest of medications noted. ALLERGIES: None. FAMILY HISTORY: No history of heart disease or strokes in the family. SOCIAL HISTORY: Alcohol, nicotine dependence. REVIEW OF SYSTEMS: Fourteen-point review of systems negative except as mentioned earlier. PHYSICAL EXAMINATION: VITAL SIGNS: Pulse is 106, blood pressure 140/101, and respirations 18. HEENT: Conjunctivae normal. NECK: No JVD. CARDIOVASCULAR: S1, S2. ABDOMEN: Soft. NERVOUS SYSTEM: Nonfocal. SKIN: No rashes. JOINTS: No active deforming arthropathy. LABORATORY DATA: Noted. ASSESSMENT: 1. Acute alcohol withdrawal and acute early delirium tremens. 2. Hypertension. 3. History of nicotine dependence. 4. Depression. RECOMMENDATION: This 38-year-old gentleman, presented with multiple complex medical issues. We will monitor the patient closely. We will initiate CIWA protocol, add clonidine to the current regimen. Supplement vitamins, Librium. Guarded prognosis because of multiple complex medical conditions. Further recommendations to follow. MMODL / IJN: [id number] /
[2024-03-16 06:20] LABS: Basophils # (A) 0.1 k/uL (0-0.2); Basophils % (A) 1 %; Eosinophils # (A) 0.3 k/uL (0-0.7); Eosinophils % (A) 4 %; HCT 42.6 % (39.0-53.0); HGB 14.8 gm/dL (13.0-17.5); Lymphocytes # (A) 2.2 k/uL (1.0-4.8); Lymphocytes % (A) 26 %; MCH 32.5 pg (25.0-35.0); MCHC 34.7 g/dL (31.0-37.0); MCV 93.5 fL (80.0-100.0); Mean Platelet Volume 7.1; Monocytes # (A) 0.4 k/uL (0-1.0); Monocytes % (A) 5 %; Neutrophils # (A) 5.4 k/uL (1.3-7.7); Neutrophils % (A) 63 %; Platelet Count 229 k/uL (150-450); RBC 4.55 m/uL (4.30-5.90); RDW 13.4 % (11.5-15.5); WBC 8.5 k/uL (3.8-10.6)
[2024-03-16 06:29] LABS: African American GFR (CKD) >90 (>60 ml/min/1.73 sqM); Anion Gap 6 mmol/L; Blood Urea Nitrogen 17 mg/dL (9-20); Calcium 8.9 mg/dL (8.4-10.2); Carbon Dioxide 28 mmol/L (22-30); Chloride 103 mmol/L (98-107); Glucose 125 mg/dL (74-99); Non-African American GFR(CKD) >90 (>60 ml/min/1.73 sqM); Potassium 3.4 mmol/L (3.5-5.1); Sodium 137 mmol/L (137-145)
[2024-03-16] MEDS: CHOLECALCIFEROL 25 MCG (1000 IU) TABLET PO SCH (08:31)
[2024-03-16] MEDS: MULTIVITAMINS, THERA 1 EACH TAB PO SCH (08:31)
[2024-03-16] MEDS: CALCIUM CARBONATE 500 MG CHEWABLE PO SCH (08:31)
[2024-03-16] MEDS ORDERED: NON FORMULARY DRUG (Omega-3/Dha/Epa/Fish Oil [Fish Oil 1,000 Mg Softgel] 1 EACH Capsule) PO SCH (09:00)
[2024-03-16 10:25] VITALS: BP 153/92; PULSE 86; RESP 16; TEMP 98.1
[2024-03-16] MEDS: FOLIC ACID 1 MG TAB PO SCH (15:21)
== END 2024-03-16 15:37 | disposition home or self-care (01) ==
LOC: EC 07:20 → 6NMEDSUR 10:44 → 1SOBS 15:03
PROVIDERS: ADMIT Hospitalist; ATTEND Hospitalist
DX: F10.231 Alcohol dependence with withdrawal delirium (principal); I10 Essential (primary) hypertension; F32.A Depression, unspecified; Y90.5 Blood alcohol level of 100-119 mg/100 ml; F17.200 Nicotine dependence, unspecified, uncomplicated
CPT/HCPCS: 96374; 96376 ×2; 99285; 36415; 93005; 80053; 80048; 83735; 85025 ×2; 80320; G0378 ×3; S4990; J2060 ×2

== ENCOUNTER 2024-04-06 23:59 | Emergency (ER) | payer MEDICAID ==
[2024-04-07 00:05] VITALS: BP 157/97; PULSE 100; RESP 18; TEMP 98
[2024-04-07 00:46] LABS: Basophils # (A) 0.1 k/uL (0-0.2); Basophils % (A) 1 %; Eosinophils # (A) 0.2 k/uL (0-0.7); Eosinophils % (A) 2 %; HCT 44.4 % (39.0-53.0); HGB 15.2 gm/dL (13.0-17.5); Lymphocytes # (A) 2.5 k/uL (1.0-4.8); Lymphocytes % (A) 27 %; MCH 31.8 pg (25.0-35.0); MCHC 34.2 g/dL (31.0-37.0); MCV 93.2 fL (80.0-100.0); Mean Platelet Volume 7.4; Monocytes # (A) 0.5 k/uL (0-1.0); Monocytes % (A) 5 %; Neutrophils # (A) 5.9 k/uL (1.3-7.7); Neutrophils % (A) 64 %; Platelet Count 325 k/uL (150-450); RBC 4.77 m/uL (4.30-5.90); RDW 13.5 % (11.5-15.5); WBC 9.2 k/uL (3.8-10.6)
[2024-04-07 00:48] LABS: Appearance,Urine Clear (Clear); Bilirubin,Urine Negative (Negative); Blood,Urine Negative (Negative); Color,Urine Colorless; Glucose,Urine (UA) Negative (Negative); Ketones,Urine Negative (Negative); Leukocyte Esterase,Urine Negative (Negative); Nitrite,Urine Negative (Negative); Protein,Urine Negative (Negative); Specific Gravity,Urine 1.006 (1.001-1.035); Urobilinogen,Urine <2.0 mg/dL (<2.0)
[2024-04-07 01:06] LABS: ALT 51 U/L (4-49); AST 28 U/L (17-59); African American GFR (CKD) >90 (>60 ml/min/1.73 sqM); Albumin 4.8 g/dL (3.5-5.0); Alkaline Phosphatase 56 U/L (38-126); Amylase 46 U/L (30-110); Anion Gap 13 mmol/L; Blood Urea Nitrogen 9 mg/dL (9-20); Calcium 9.7 mg/dL (8.4-10.2); Carbon Dioxide 27 mmol/L (22-30); Chloride 98 mmol/L (98-107); Glucose 97 mg/dL (74-99); Lipase 94 U/L (23-300); Non-African American GFR(CKD) >90 (>60 ml/min/1.73 sqM); Potassium 3.7 mmol/L (3.5-5.1); Sodium 138 mmol/L (137-145); Total Bilirubin 0.6 mg/dL (0.2-1.3); Total Protein 7.2 g/dL (6.3-8.2)
[2024-04-07 01:43] LABS: Influenza A Not Detected (Not Detectd); Influenza B Not Detected (Not Detectd); RSV Not Detected (Not Detectd)
== END 2024-04-07 01:17 | disposition left against medical advice (07) ==
LOC: EC 23:59
DX: R10.13 Epigastric pain (principal); Z53.1 Procedure and treatment not carried out because of patient's decision for reasons of belief and group pressure
CPT/HCPCS: 36415; 80053; 81003; 82150; 83690; 85025; 87636; 99499

== ENCOUNTER 2024-04-10 00:36 | Emergency (ER) | payer MEDICAID ==
--- NOTE | 2024-04-10 01:41 | ED ---
Abdominal Pain HPI - General Chief Complaint: Abdominal Pain Stated Complaint: abd pain Time Seen by Provider: 04/10/24 01:38 Source: patient, RN notes reviewed Mode of arrival: wheelchair Limitations: no limitations - History of Present Illness Initial Comments: 38-year-old male with history of alcohol abuse presenting for epigastric pain associated nausea and vomiting x 1 week. Reports a sharp, intermittent epigastric pain in the center of his abdomen. States he has been on Antabuse for alcohol use disorder for 10 days. Last alcoholic drink was 10 days ago. Denies history of abdominal surgeries. Denies vomiting. States he was seen by his PCP for this last week where they told him his white blood cell count was high and placed him on an antibiotic for likely upper respiratory infection. - Related Data Home Medications Medication Instructions Recorded Confirmed Cholecalciferol [Vitamin D3 (25 25 mcg PO DAILY 04/26/22 03/15/24 Mcg = 1000 Iu)] [place]-3/Dha/Epa/Fish Oil [Fish Oil 1 cap PO DAILY 04/26/22 03/15/24 1,000 mg Softgel] Calcium Carbonate [Calcium] 600 mg PO DAILY 02/18/24 03/15/24 Multivitamins, Thera [Multivitamin 1 tab PO DAILY 02/18/24 03/15/24 (formulary)] Previous Rx's Medication Instructions Recorded Folic Acid 1 mg PO DAILY@1200 #30 tab 03/16/24 Thiamine [Vitamin B-1] 100 mg PO BID-W/MEALS #60 tab 03/16/24 chlordiazePOXIDE HCl [Librium] 20 mg PO TID #12 cap 03/16/24 cloNIDine HCL [Catapres] 0.1 mg PO TID #90 tab 03/16/24 Allergies Allergy/AdvReac Type Severity Reaction Status Date / Time No Known Allergies Allergy Verified 04/10/24 00:39 Review of Systems ROS Statement: Those systems with pertinent positive or pertinent negative responses have been documented in the HPI. ROS Other: All systems not noted in ROS Statement are negative. Past Medical History Past Medical History: No Reported History Additional Past Medical History / Comment(s): alcohol History of Any Multi-Drug Resistant Organisms: None Reported Past Surgical History: No Surgical Hx Reported Past Psychological History: No Psychological Hx Reported, Depression Smoking Status: Current every day smoker Past Alcohol Use History: Abuse, Daily Past Drug Use History: None Reported General Exam Limitations: no limitations General appearance: alert, in no apparent distress Head exam: Present: atraumatic, normocephalic, normal inspection Eye exam: Present: normal appearance, PERRL, EOMI. Absent: scleral icterus, conjunctival injection, periorbital swelling Respiratory exam: Present: normal lung sounds bilaterally. Absent: respiratory distress, wheezes, rales, rhonchi, stridor Cardiovascular Exam: Present: regular rate, normal rhythm, normal heart sounds. Absent: systolic murmur, diastolic murmur, rubs, gallop, clicks GI/Abdominal exam: Present: soft, normal bowel sounds. Absent: distended, tenderness, guarding, rebound, rigid Neurological exam: Present: alert, oriented X3 Psychiatric exam: Present: normal affect, normal mood Skin exam: Present: warm, dry, intact, normal color. Absent: rash Course Vital Signs 04/10/24 00:38 Temperature 98.6 F Pulse Rate 87 Respiratory 18 Rate Blood Pressure 165/99 O2 Sat by Pulse 97 Oximetry Medical Decision Making - Medical Decision Making Was pt. sent in by a medical professional or institution (, PA, CHEMICAL DEPENDENCY ATTENDANT, urgent care, hospital, or care home...) When possible be specific @ -No Did you speak to anyone other than the patient for history (EMS, parent, family, police, friend...)? What history was obtained from this source @ -No Did you review nursing and triage notes (agree or disagree)? Why? @ -I reviewed and agree with nursing and triage notes Were old charts reviewed (outside hosp., previous admission, EMS record, old EKG, old radiological studies, urgent care reports/EKG's, care home records)? Report findings @ -No old charts were reviewed Differential Diagnosis (chest pain, altered mental status, abdominal pain women, abdominal pain men, vaginal bleeding, weakness, fever, dyspnea, syncope, headache, dizziness, GI bleed, back pain, seizure, CVA, palpatations, mental health, musculoskeletal)? @ -Differential Abdominal Pain Men: Appendicitis, cholecystitis, diverticulosis, ischemic bowel, pancreatitis, hepatitis, UTI, gastroenteritis, AAA, incarcerated hernia, bowel obstruction, constipation, inflammatory bowel, hepatitis, peptic ulcer disease, splenic infarction, perforated viscus, testicular torsion, this is not meant to be an all-inclusive list EKG interpreted by me (3pts min.). @ -As above X-rays interpreted by me (1pt min.). @ -None done CT interpreted by me (1pt min.). @ -CT abdomen pelvis reveals no acute process U/S interpreted by me (1pt. min.). @ -None done What testing was considered but not performed or refused? (CT, X-rays, U/S, l abs)? Why? @ -None What meds were considered but not given or refused? Why? @ -None Did you discuss the management of the patient with other professionals (professionals i.e. , PA, CHEMICAL DEPENDENCY ATTENDANT, lab, RT, psych nurse, social science professor, finish molder, teacher, patient safety officer, hospice case manager)? Give summary @ -No Was smoking cessation discussed for >3mins.? @ -No Was critical care preformed (if so, how long)? @ -No Were there social determinants of health that impacted care today? How? (Homelessness, low income, unemployed, alcoholism, drug addiction, transportation, low edu. Level, literacy, decrease access to med. care, intermediate, rehab)? @ -No Was there de-escalation of care discussed even if they declined (Discuss DNR or withdrawal of care, Hospice)? DNR status @ -No What co-morbidities impacted this encounter? (DM, HTN, Smoking, COPD, CAD, Cancer, CVA, ARF, Chemo, Hep., AIDS, mental health diagnosis, sleep apnea, morbid obesity)? @ -None Was patient admitted / discharged? Hospital course, mention meds given and route, prescriptions, significant lab abnormalities, going to OR and other pertinent info. @ -This is a 38-year-old male presenting for epigastric pain x 1 week nausea/vomiting/diarrhea. Patient just recently started a Antabuse for alcohol use disorder, last alcoholic drink was 10 days ago. Vital signs within acceptable limits. Abdomen is soft and nontender. Patient was provided with IV fluids, analgesics, and antiemetics. EKG reveals normal sinus rhythm with no ST changes. Lab work largely unremarkable. CT abdomen pelvis reveals no acute process. Upon reevaluation, patient reports improvement of symptoms. Discussed results with patient. There does not appear to be a emergent etiology of symptoms. Patient is able to tolerate p.o. and feels stable for discharge. He has an appointment with his PCP on Friday. Appropriate return precautions and follow-up care discussed. Case was discussed with the ED attending Dr. Estevez. Undiagnosed new problem with uncertain prognosis? @ -No Drug Therapy requiring intensive monitoring for toxicity (Heparin, Nitro, Insulin, Cardizem)? @ -No Were any procedures done? @ -No Diagnosis/symptom? @ -Epigastric pain Acute, or Chronic, or Acute on Chronic? @ -Acute Uncomplicated (without systemic symptoms) or Complicated (systemic symptoms)? @ -Uncomplicated Side effects of treatment? @ -No Exacerbation, Progression, or Severe Exacerbation? @ -No Poses a threat to life or bodily function? How? (Chest pain, [place], [place], pneumonia, PE, COPD, DKA, ARF, appy, cholecystitis, CVA, Diverticulitis, Homicidal, Suicidal, threat to staff... and all critical care pts) @ -No - Lab Data Result diagrams: 04/10/24 01:39 04/10/24 01:39 Lab Results 04/10/24 04/10/24 04/10/24 Range/Units 01:39 01:39 01:39 WBC 10.4 (3.8-10.6) k/uL RBC 4.71 (4.30-5.90) m/uL Hgb 15.0 (13.0-17.5) gm/dL Hct 43.8 (39.0-53.0) % MCV 92.9 (80.0-100.0) fL MCH 31.8 (25.0-35.0) pg MCHC 34.2 (31.0-37.0) g/dL RDW 13.3 (11.5-15.5) % Plt Count 299 (150-450) k/uL MPV 7.5 Neutrophils % 76 % Lymphocytes % 17 % Monocytes % 4 % Eosinophils % 2 % Basophils % 0 % Neutrophils # 7.9 H (1.3-7.7) k/uL Lymphocytes # 1.7 (1.0-4.8) k/uL Monocytes # 0.4 (0-1.0) k/uL Eosinophils # 0.3 (0-0.7) k/uL Basophils # 0.0 (0-0.2) k/uL Sodium 137 (137-145) mmol/L Potassium 4.0 (3.5-5.1) mmol/L Chloride 101 (98-107) mmol/L Carbon Dioxide 28 (22-30) mmol/L Anion Gap 8 mmol/L BUN 7 L (9-20) mg/dL Creatinine 0.94 (0.66-1.25) mg/dL Est GFR (CKD-EPI)AfAm >90 (>60 ml/min/1.73 sqM) Est GFR (CKD-EPI)NonAf >90 (>60 ml/min/1.73 sqM) Glucose 115 H (74-99) mg/dL Plasma Lactic Acid Ismael 1.1 (0.7-2.0) mmol/L Calcium 9.4 (8.4-10.2) mg/dL Total Bilirubin 0.7 (0.2-1.3) mg/dL AST 25 (17-59) U/L ALT 40 (4-49) U/L Alkaline Phosphatase 45 (38-126) U/L Total Protein 6.4 (6.3-8.2) g/dL Albumin 4.1 (3.5-5.0) g/dL Lipase 52 (23-300) U/L - EKG Data -: EKG Interpreted by Me EKG Comments: EKG reveals normal sinus rhythm with no ST changes. Ventricular rate 74 bpm, [place] interval 158, QRS duration 126, QT/QTc 386/413 Disposition Clinical Impression: Epigastric pain Disposition: HOME SELF-CARE Condition: Stable Instructions (If sedation given, give patient instructions): Epigastric Pain (ED) Additional Instructions: Follow-up for PCP appointment on Friday. Please return to the Emergency Department if symptoms worsen or any other concerns. Is patient prescribed a controlled substance at d/c from ED?: No Referrals: Jermain Hall MD [Primary Care Provider] - 1-2 days Time of Disposition: 04:15
[2024-04-10] MEDS: ONDANSETRON 4 MG/2 ML VIAL IVP STA ×2 (01:56→03:33)
[2024-04-10] MEDS: KETOROLAC 15 MG/ML 1 ML VIAL IVP STA (01:57)
[2024-04-10] MEDS: MORPHINE SULFATE 4 MG/ML SYRINGE IVP STA (01:57)
[2024-04-10] MEDS: SODIUM CHLORIDE 0.9% 1,000 ML IV STA (02:00)
[2024-04-10 02:10] LABS: Basophils % (A) 0 %; Eosinophils # (A) 0.3 k/uL (0-0.7); Eosinophils % (A) 2 %; HCT 43.8 % (39.0-53.0); Lymphocytes # (A) 1.7 k/uL (1.0-4.8); Lymphocytes % (A) 17 %; MCH 31.8 pg (25.0-35.0); MCHC 34.2 g/dL (31.0-37.0); MCV 92.9 fL (80.0-100.0); Mean Platelet Volume 7.5; Monocytes # (A) 0.4 k/uL (0-1.0); Monocytes % (A) 4 %; Neutrophils # (A) 7.9 k/uL (1.3-7.7); Neutrophils % (A) 76 %; Platelet Count 299 k/uL (150-450); RBC 4.71 m/uL (4.30-5.90); RDW 13.3 % (11.5-15.5); WBC 10.4 k/uL (3.8-10.6)
[2024-04-10] MEDS: MORPHINE SULFATE 2 MG/ML SYRINGE IVP ONE (03:37)
[2024-04-10 03:45] LABS: ALT 40 U/L (4-49); AST 25 U/L (17-59); African American GFR (CKD) >90 (>60 ml/min/1.73 sqM); Albumin 4.1 g/dL (3.5-5.0); Alkaline Phosphatase 45 U/L (38-126); Anion Gap 8 mmol/L; Blood Urea Nitrogen 7 mg/dL (9-20); Calcium 9.4 mg/dL (8.4-10.2); Carbon Dioxide 28 mmol/L (22-30); Chloride 101 mmol/L (98-107); Glucose 115 mg/dL (74-99); Lipase 52 U/L (23-300); Non-African American GFR(CKD) >90 (>60 ml/min/1.73 sqM); Sodium 137 mmol/L (137-145); Total Bilirubin 0.7 mg/dL (0.2-1.3); Total Protein 6.4 g/dL (6.3-8.2)
--- NOTE | 2024-04-10 04:05 | CT ---
EXAM: CT Abdomen and Pelvis Without Intravenous Contrast CLINICAL HISTORY: ITS.REASON CT Reason: epigastric pain TECHNIQUE: Axial computed tomography images of the abdomen and pelvis without intravenous contrast. CTDI is 10.3 mGy and DLP is 650 mGy-cm. This CT exam was performed using one or more of the following dose reduction techniques: automated exposure control, adjustment of the mA and/or kV according to patient size, and/or use of iterative reconstruction technique. COMPARISON: No relevant prior studies available. FINDINGS: Lung bases: Unremarkable. No mass. No consolidation. ABDOMEN: Liver: Unremarkable. Gallbladder and bile ducts: Unremarkable. No calcified stones. No ductal dilation. Pancreas: Unremarkable. No ductal dilation. Spleen: Unremarkable. No splenomegaly. Adrenals: Unremarkable. No mass. Kidneys and ureters: Unremarkable. No obstructing stones. No hydronephrosis. Stomach and bowel: Diverticulosis, without acute diverticulitis. No small bowel obstruction. No free intraperitoneal air. PELVIS: Appendix: No findings to suggest acute appendicitis. Bladder: Unremarkable. No stones. Reproductive: Unremarkable as visualized. ABDOMEN and PELVIS: Intraperitoneal space: Unremarkable. No free air. No significant fluid collection. Bones/joints: No acute fracture. No dislocation. Soft tissues: Small fat-containing LEFT inguinal hernia. Vasculature: Unremarkable. No abdominal aortic aneurysm. Lymph nodes: Unremarkable. No enlarged lymph nodes. IMPRESSION: Diverticulosis, without acute diverticulitis. No small bowel obstruction. No free intraperitoneal air.
[2024-04-10] MEDS: MAG HYDROX/AL HYDROX/SIMETH 30 ML CUP PO STA (04:17)
[2024-04-10] MEDS: FAMOTIDINE 20 MG/2 ML VIAL IV STA (04:17)
[2024-04-10] MEDS: PANTOPRAZOLE 40 MG/10 ML VIAL IVP STA (04:17)
[2024-04-10] MEDS: LIDOCAINE VISCOUS 2% 15 ML CUP PO ONE (04:17)
[2024-04-10] MEDS: SUCRALFATE 1 GM TAB PO STA (04:18)
[2024-04-10 04:43] VITALS: BP 155/102; PULSE 98; RESP 20; TEMP 98.2
== END 2024-04-10 04:35 | disposition home or self-care (01) ==
LOC: EC 00:36
DX: R10.13 Epigastric pain (principal); R11.2 Nausea with vomiting, unspecified; F17.200 Nicotine dependence, unspecified, uncomplicated
CPT/HCPCS: 36415; 93005; 80053; 83605; 83690; 85025; 74176; 99285; 96374; 96375 ×2; 96376 ×2; 96361; J2270 ×2; J2405; J1885

== ENCOUNTER 2024-05-25 11:06 | Day surgery (SDC) | payer MEDICAID ==
[2024-05-24 10:56] VITALS: BMI 26.6
[2024-05-25] MEDS ORDERED: LACTATED RINGERS 1,000 ML IV SCH (11:39)
[2024-05-25 11:46] VITALS: TEMP 98.4
[2024-05-25] MEDS: IV FLUID CONTINUATION 1,000 ML IV ONE (11:51)
[2024-05-25] MEDS ORDERED: PROPOFOL 10 MG/ML 20 ML VIAL IV ONE (12:14)
[2024-05-25] MEDS ORDERED: LIDOCAINE 2% (PF) 20 MG/ML 5 ML VIAL ONE (12:14)
--- NOTE | 2024-05-25 12:22 | P.PCN ---
Date of Procedure: 05/25/24 Procedure(s) Performed: BRIEF HISTORY: Patient is a 39-year-old, pleasant, white man scheduled up endoscopy as a part of evaluation of epigastric pain associated with nausea vomiting for the last few weeks duration. He was recently started omeprazole 40 mg daily and symptoms are gradually improving.. PROCEDURE PERFORMED: Esophagogastroduodenoscopy with biopsy. PREOPERATIVE DIAGNOSIS: Chronic epigastric pain with intermittent nausea vomiting. IV sedation per anesthesia. PROCEDURE: After informed consent was obtained, the patient was brought into the endoscopy unit. IV sedation was administered by Anesthesia under continuous monitoring. Initially the Olympus GIF-140 video endoscope was inserted into the mouth. Esophagus intubated without any difficulty. It was gradually advanced into the stomach and duodenum and carefully examined. The bulb and the second part of the duodenum appeared normal. The scope at this time was withdrawn to the stomach, adequately insufflated with air, and upon careful examination, mucosa of the antrum, and mild gastritis and biopsies were done from this area. Mucosa of the body, cardia and the fundus appeared normal. The scope was then withdrawn into the esophagus. The GE junction was located at 44 cm from the incisors. The esophagus appeared normal. There were 2 superficial erosions of the distal esophagus consistent with LA grade B reflux esophagitis. Rest of the esophagus appeared normal and the patient tolerated the procedure well. IMPRESSION: 1. Mild antral gastritis. 2. 2 linear erosions of the distal esophagus consistent with LA grade B reflux esophagitis. RECOMMENDATIONS: The findings of this examination were discussed with the pat ient as well as his family. He was advised to follow-up with the biopsy results.. Continue with omeprazole 40 mg daily and follow antireflux measures.
[2024-05-25 12:55] VITALS: BP 135/89; PULSE 89; RESP 16
== END 2024-05-25 13:07 | disposition home or self-care (01) ==
LOC: ORWHC2ENDO 11:06
PROVIDERS: ATTEND Internal Medicine Gastroenterology
DX: K29.50 Unspecified chronic gastritis without bleeding (principal); K21.00 Gastro-esophageal reflux disease with esophagitis, without bleeding
CPT/HCPCS: 43239; J2704; J2003; 88305

== ENCOUNTER 2024-06-03 23:17 | Emergency (ER) | payer MEDICAID ==
[2024-06-04] MEDS: MORPHINE SULFATE 4 MG/ML SYRINGE IVP STA ×2 (00:43→02:37)
[2024-06-04] MEDS: FAMOTIDINE 20 MG/2 ML VIAL IV STA (00:44)
[2024-06-04] MEDS: ONDANSETRON ODT 8 MG TAB.RAPDIS PO STA (00:44)
[2024-06-04] MEDS: PANTOPRAZOLE 40 MG/10 ML VIAL IVP STA (00:44)
[2024-06-04] MEDS: SODIUM CHLORIDE 0.9% 1,000 ML IV SCH (00:45)
[2024-06-04 00:56] LABS: Basophils # (A) 0.04 10*3/uL (0.00-0.10); Basophils % (A) 0.4 %; Eosinophils # (A) 0.02 10*3/uL (0.04-0.35); Eosinophils % (A) 0.2 %; HCT 45.7 % (39.6-50.0); HGB 16.8 g/dL (13.0-17.0); Lymphocytes # (A) 1.43 10*3/uL (0.90-5.00); Lymphocytes % (A) 13.8 %; MCH 32.3 pg (27.0-32.0); MCHC 36.8 g/dL (32.0-37.0); MCV 87.9 fL (80.0-97.0); Mean Platelet Volume 9.3 fL (9.5-12.2); Monocytes # (A) 0.38 10*3/uL (0.20-1.00); Monocytes % (A) 3.7 %; Neutrophils # (A) 8.41 10*3/uL (1.80-7.70); Neutrophils % (A) 81.3 %; Platelet Count 253 10*3/uL (140-440); RDW 12.8 % (11.5-14.5); WBC 10.34 10*3/uL (4.50-10.00)
[2024-06-04] MEDS: ONDANSETRON 4 MG/2 ML VIAL IVP STA (01:06)
[2024-06-04 01:18] LABS: ALT 70 U/L (4-49); AST 48 U/L (17-59); African American GFR (CKD) >90 (>60 ml/min/1.73 sqM); Alcohol <10 mg/dL; Alkaline Phosphatase 65 U/L (38-126); Anion Gap 12 mmol/L; Blood Urea Nitrogen 14 mg/dL (9-20); Calcium 10.5 mg/dL (8.4-10.2); Carbon Dioxide 28 mmol/L (22-30); Chloride 98 mmol/L (98-107); Glucose 147 mg/dL (74-99); Lipase 48 U/L (23-300); Non-African American GFR(CKD) >90 (>60 ml/min/1.73 sqM); Potassium 4.4 mmol/L (3.5-5.1); Sodium 138 mmol/L (137-145); Total Protein 7.9 g/dL (6.3-8.2)
[2024-06-04 01:47] LABS: Amorphous Sediment,Urine Occasional /hpf; Appearance,Urine Cloudy (Clear); Bilirubin,Urine Negative (Negative); Blood,Urine Negative (Negative); Color,Urine Yellow; Glucose,Urine (UA) 1+ (Negative); Hyaline Casts,Urine 21 /lpf (0-2); Leukocyte Esterase,Urine Negative (Negative); Mucus,Urine Many /hpf; Nitrite,Urine Negative (Negative); PH, Urine 6.5 (5.0-8.0); Protein,Urine 1+ (Negative); RBC,Urine <1 /hpf (0-5); Urobilinogen,Urine <2.0 mg/dL (<2.0); WBC,Urine 4 /hpf (0-5)
--- NOTE | 2024-06-04 02:56 | ED ---
Abdominal Pain HPI - General Chief Complaint: Abdominal Pain Stated Complaint: NVD, Abdominal Pain Time Seen by Provider: 06/03/24 23:20 Source: patient Mode of arrival: ambulatory Limitations: no limitations - History of Present Illness Initial Comments: 39-year-old male with hypertension, alcoholism who presents to the emergency department with abdominal pain. Patient has history of epigastric pain secondary to esophageal erosions and gastritis. He had an EGD done on May 25. He takes omeprazole 40 mg daily. He does drink alcohol. Alcohol cessation was recommended however patient states that he has "fallen off the bandwagon" and h as been drinking heavily for the past 2 weeks. He does have Antabuse at home and states he stopped taking it. He has had nausea and vomiting. Denies history of pancreatitis. Last drink was earlier today. He denies any fevers. No changes in his bowel or bladder habits. He denies chest pain or difficulty breathing. no other alleviating, precipitating or modifying factors - Related Data Home Medications Medication Instructions Recorded Confirmed Conway-3/Dha/Epa/Fish Oil [Fish Oil 1 cap PO DAILY 04/26/22 05/25/24 1,000 mg Softgel] Multivitamins, Thera [Multivitamin 1 tab PO DAILY 02/18/24 05/25/24 (formulary)] amLODIPine [Norvasc] 2.5 mg PO QAM 05/24/24 05/25/24 cloNIDine HCL [Catapres] 0.1 mg PO HS 05/24/24 05/25/24 Previous Rx's Medication Instructions Recorded LORazepam [Ativan] 1 mg PO TID 3 Days #9 tab 06/04/24 Ondansetron Odt [Zofran Odt] 4 mg PO Q8HR PRN #20 tab 06/04/24 Sucralfate [Carafate] 1 gm PO ACHS #60 tab 06/04/24 Allergies Allergy/AdvReac Type Severity Reaction Status Date / Time No Known Allergies Allergy Verified 06/03/24 23:21 Review of Systems ROS Statement: Those systems with pertinent positive or pertinent negative responses have been documented in the HPI. ROS Other: All systems not noted in ROS Statement are negative. Past Medical History Past Medical History: Hypertension Additional Past Medical History / Comment(s): excessive vomiting approx 2 weeks ago and pain, hospitalized in ER for pain Mar 2024,alcohol History of Any Multi-Drug Resistant Organisms: None Reported Past Surgical History: No Surgical Hx Reported Additional Past Surgical History / Comment(s): EGD 05/25/24 Past Psychological History: Depression Smoking Status: Current every day smoker Past Alcohol Use History: Daily Past Drug Use History: None Reported - Past Family History Mother Family Medical History: No Reported History General Exam Limitations: no limitations General appearance: alert, in no apparent distress Head exam: Present: atraumatic, normocephalic, normal inspection Eye exam: Present: normal appearance, PERRL, EOMI. Absent: scleral icterus, conjunctival injection, periorbital swelling ENT exam: Present: normal exam, mucous membranes moist Neck exam: Present: normal inspection. Absent: tenderness, meningismus, lymphadenopathy Respiratory exam: Present: normal lung sounds bilaterally. Absent: respiratory distress, wheezes, rales, rhonchi, stridor Cardiovascular Exam: Present: regular rate, normal rhythm, normal heart sounds. Absent: systolic murmur, diastolic murmur, rubs, gallop, clicks GI/Abdominal exam: Present: soft, tenderness (luq), normal bowel sounds. Absent: distended, guarding, rebound, rigid Extremities exam: Present: normal inspection, full ROM, normal capillary refill. Absent: tenderness, pedal edema, joint swelling, calf tenderness Back exam: Present: normal inspection Neurological exam: Present: alert, oriented X3, CN II-XII intact Psychiatric exam: Present: normal affect, normal mood Skin exam: Present: warm, dry, intact, normal color. Absent: rash Course Vital Signs 06/03/24 06/04/24 06/04/24 23:18 00:21 01:30 Temperature 97.8 F Pulse Rate 81 65 89 Respiratory 18 11 L 17 Rate Blood Pressure 158/110 166/111 166/108 O2 Sat by Pulse 99 98 99 Oximetry 06/04/24 06/04/24 02:00 04:41 Temperature 98.0 F Pulse Rate 77 89 Respiratory 16 19 Rate Blood Pressure 144/90 151/93 O2 Sat by Pulse 98 97 Oximetry Medical Decision Making - Medical Decision Making Was pt. sent in by a medical professional or institution (, PA, [employer]ER, urgent care, hospital, or halfway...) When possible be specific @ -No Did you speak to anyone other than the patient for history (EMS, parent, family, police, friend...)? What history was obtained from this source @ -No Did you review nursing and triage notes (agree or disagree)? Why? @ -I reviewed and agree with nursing and triage notes Were old charts reviewed (outside hosp., previous admission, EMS record, old EKG, old radiological studies, urgent care reports/EKG's, halfway records)? Report findings @ -I reviewed the EGD report that patient had done on May 25, [address] Siddiqui. Demonstrates esophageal erosions Differential Diagnosis (chest pain, altered mental status, abdominal pain women, abdominal pain men, vaginal bleeding, weakness, fever, dyspnea, syncope, headache, dizziness, GI bleed, back pain, seizure, CVA, palpatations, mental health, musculoskeletal)? @ -Differential Abdominal Pain Men: Appendicitis, cholecystitis, diverticulosis, ischemic bowel, pancreatitis, hepatitis, UTI, gastroenteritis, AAA, incarcerated hernia, bowel obstruction, constipation, inflammatory bowel, hepatitis, peptic ulcer disease, splenic infarction, perforated viscus, testicular torsion, this is not meant to be an all-inclusive list EKG interpreted by me (3pts min.). @ - yes and demonstrates sinus rhythm with a rate of 67. LA interval 158. QRS 124. QTc of 400. No acute ST segment elevations or depressions X-rays interpreted by me (1pt min.). @ -None done CT interpreted by me (1pt min.). @ -None done U/S interpreted by me (1pt. min.). @ -None done What testing was considered but not performed or refused? (CT, X-rays, U/S, labs)? Why? @ -None What meds were considered but not given or refused? Why? @ -None Did you discuss the management of the patient with other professionals (professionals i.e. Dr., PA, [employer], lab, RT, psych nurse, social and human services assistant, salvage engineer, teacher, catapult and arresting gear officer, case management associate)? Give summary @ -No Was smoking cessation discussed for >3mins.? @ -No Was critical care preformed (if so, how long)? @ -No Were there social determinants of health that impacted care today? How? (Homelessness, low income, unemployed, alcoholism, drug addiction, transportation, low edu. Level, literacy, decrease access to med. care, skilled nursing, rehab)? @ -No Was there de-escalation of care discussed even if they declined (Discuss DNR or withdrawal of care, Hospice)? DNR status @ -No What co-morbidities impacted this encounter? (DM, HTN, Smoking, COPD, CAD, Cancer, CVA, ARF, Chemo, Hep., AIDS, mental health diagnosis, sleep apnea, morbid obesity)? @ -Alcohol abuse, reflux, hypertension Was patient admitted / discharged? Hospital course, mention meds given and route, prescriptions, significant lab abnormalities, going to OR and other pertinent info. @ -Upon arrival patient seen and evaluated in bed 9. Thorough history and physical exam was performed. IV was established. Patient was given Pepcid, Protonix, Zofran and morphine. Laboratory studies are conducted. Patient does have improvement in his symptoms. He is additionally given a dose of Carafate as he now can tolerate oral medications. I did discuss the diagnosis, differential and treatment options. Patient will be discharged home with Ativan to utilize for his withdrawal symptoms. Patient must stop drinking in order to improve his abdominal pain. He will be prescribed Carafate to take with his omeprazole to help with his reflux and gastritis. Follow-up with his primary care doctor in 2 to 4 days to ensure that his symptoms are improved and return for any new or worsening symptoms Undiagnosed new problem with uncertain prognosis? @ -No Drug Therapy requiring intensive monitoring for toxicity (Heparin, Nitro, Insulin, Cardizem)? @ -No Were any procedures done? @ -No Diagnosis/symptom? @ -Acute left upper quadrant abdominal pain, history of alcohol abuse, history of esophageal erosions and gastritis Acute, or Chronic, or Acute on Chronic? @ -Acute on chronic Uncomplicated (without systemic symptoms) or Complicated (systemic symptoms)? @ -Complicated Side effects of treatment? @ -No Exacerbation, Progression, or Severe Exacerbation? @ -No Poses a threat to life or bodily function? How? (Chest pain, [place], [place], pneumonia, PE, COPD, DKA, ARF, appy, cholecystitis, CVA, Diverticulitis, Homicidal, Suicidal, threat to staff... and all critical care pts) @ -No - Lab Data Result diagrams: 06/03/24 23:57 06/03/24 23:57 Lab Results 06/03/24 06/03/24 06/03/24 Range/Units 23:57 23:57 23:57 WBC 10.34 H (4.50-10.00) 10*3/uL RBC 5.20 (4.40-5.60) 10*6/uL Hgb 16.8 (13.0-17.0) g/dL Hct 45.7 (39.6-50.0) % MCV 87.9 (80.0-97.0) fL MCH 32.3 H (27.0-32.0) pg MCHC 36.8 (32.0-37.0) g/dL Plt Count 253 (140-440) 10*3/uL MPV 9.3 L (9.5-12.2) fL Immature Gran % (Auto) 0.6 % Neutrophils % 81.3 % Lymphocytes % 13.8 % Monocytes % 3.7 % Eosinophils % 0.2 % Basophils % 0.4 % Immature Gran # 0.06 H (0.00-0.04) 10*3/uL Neutrophils # 8.41 H (1.80-7.70) 10*3/uL Lymphocytes # 1.43 (0.90-5.00) 10*3/uL Monocytes # 0.38 (0.20-1.00) 10*3/uL Eosinophils # 0.02 L (0.04-0.35) 10*3/uL Basophils # 0.04 (0.00-0.10) 10*3/uL Sodium 138 (137-145) mmol/L Potassium 4.4 (3.5-5.1) mmol/L Chloride 98 (98-107) mmol/L Carbon Dioxide 28 (22-30) mmol/L Anion Gap 12 mmol/L BUN 14 (9-20) mg/dL Creatinine 0.87 (0.66-1.25) mg/dL Est GFR (CKD-EPI)AfAm >90 (>60 ml/min/1.73 sqM) Est GFR (CKD-EPI)NonAf >90 (>60 ml/min/1.73 sqM) Glucose 147 H (74-99) mg/dL Plasma Lactic Acid Ismael 1.8 (0.7-2.0) mmol/L Calcium 10.5 H (8.4-10.2) mg/dL Total Bilirubin 1.0 (0.2-1.3) mg/dL AST 48 (17-59) U/L ALT 70 H (4-49) U/L Alkaline Phosphatase 65 (38-126) U/L Total Protein 7.9 (6.3-8.2) g/dL Albumin 5.0 (3.5-5.0) g/dL Lipase 48 (23-300) U/L Urine Color Urine Appearance (Clear) Urine pH (5.0-8.0) Ur Specific [place] (1.001-1.035) Urine Protein (Negative) Urine Glucose (UA) (Negative) Urine Ketones (Negative) Urine Blood (Negative) Urine Nitrite (Negative) Urine Bilirubin (Negative) Urine Urobilinogen (<2.0) mg/dL Ur Leukocyte Esterase (Negative) Urine RBC (0-5) /hpf Urine WBC (0-5) /hpf Amorphous Sediment (None) /hpf Hyaline Casts (0-2) /lpf Urine Mucus (None) /hpf Serum Alcohol <10 mg/dL 06/04/24 Range/Units 01:15 WBC (4.50-10.00) 10*3/uL RBC (4.40-5.60) 10*6/uL Hgb (13.0-17.0) g/dL Hct (39.6-50.0) % MCV (80.0-97.0) fL MCH (27.0-32.0) pg MCHC (32.0-37.0) g/dL Plt Count (140-440) 10*3/uL MPV (9.5-12.2) fL Immature Gran % (Auto) % Neutrophils % % Lymphocytes % % Monocytes % % Eosinophils % % Basophils % % Immature Gran # (0.00-0.04) 10*3/uL Neutrophils # (1.80-7.70) 10*3/uL Lymphocytes # (0.90-5.00) 10*3/uL Monocytes # (0.20-1.00) 10*3/uL Eosinophils # (0.04-0.35) 10*3/uL Basophils # (0.00-0.10) 10*3/uL Sodium (137-145) mmol/L Potassium (3.5-5.1) mmol/L Chloride (98-107) mmol/L Carbon Dioxide (22-30) mmol/L Anion Gap mmol/L BUN (9-20) mg/dL Creatinine (0.66-1.25) mg/dL Est GFR (CKD-EPI)AfAm (>60 ml/min/1.73 sqM) Est GFR (CKD-EPI)NonAf (>60 ml/min/1.73 sqM) Glucose (74-99) mg/dL Plasma Lactic Acid Ismael (0.7-2.0) mmol/L Calcium (8.4-10.2) mg/dL Total Bilirubin (0.2-1.3) mg/dL AST (17-59) U/L ALT (4-49) U/L Alkaline Phosphatase (38-126) U/L Total Protein (6.3-8.2) g/dL Albumin (3.5-5.0) g/dL Lipase (23-300) U/L Urine Color Yellow Urine Appearance Cloudy (Clear) Urine pH 6.5 (5.0-8.0) Ur Specific [place] 1.030 (1.001-1.035) Urine Protein 1+ H (Negative) Urine Glucose (UA) 1+ H (Negative) Urine Ketones 3+ H (Negative) Urine Blood Negative (Negative) Urine Nitrite Negative (Negative) Urine Bilirubin Negative (Negative) Urine Urobilinogen <2.0 (<2.0) mg/dL Ur Leukocyte Esterase Negative (Negative) Urine RBC <1 (0-5) /hpf Urine WBC 4 (0-5) /hpf Amorphous Sediment Occasional H (None) /hpf Hyaline Casts 21 H (0-2) /lpf Urine Mucus Many H (None) /hpf Serum Alcohol mg/dL Disposition Clinical Impression: Epigastric pain, Alcohol abuse Disposition: HOME SELF-CARE Condition: Stable Instructions (If sedation given, give patient instructions): Abdominal Pain (ED) Additional Instructions: Stop drinking alcohol. Continue taking your prescribed home medications. Take the Ativan as needed for withdrawal symptoms. Return for any new or worsening symptoms. Prescriptions: LORazepam [Ativan] 1 mg PO TID 3 Days #9 tab Sucralfate [Carafate] 1 gm PO ACHS #60 tab Ondansetron Odt [Zofran Odt] 4 mg PO Q8HR PRN #20 tab PRN Reason: Nausea Is patient prescribed a controlled substance at d/c from ED?: Yes When asked, does pt state using other controlled substances?: No If prescribed controlled substance>3 days was MAPS reviewed?: Prescribed <3 Days Referrals: Jermain Hall MD [Primary Care Provider] - 1-2 days Forms: Work/School Release Time of Disposition: 04:09
[2024-06-04 03:29] LABS: Ketones,Urine 3+ (Negative)
[2024-06-04] MEDS: METOCLOPRAMIDE 5 MG/ML 2 ML VIAL IVP STA (04:29)
[2024-06-04] MEDS: SUCRALFATE 1 GM TAB PO STA (04:29)
[2024-06-04 04:44] VITALS: BP 151/93; PULSE 89; RESP 19; TEMP 98
== END 2024-06-04 04:52 | disposition home or self-care (01) ==
LOC: EC 23:17
DX: R10.13 Epigastric pain (principal); F10.10 Alcohol abuse, uncomplicated; I10 Essential (primary) hypertension; K21.9 Gastro-esophageal reflux disease without esophagitis; F17.200 Nicotine dependence, unspecified, uncomplicated; Y90.0 Blood alcohol level of less than 20 mg/100 ml
CPT/HCPCS: 99285; 96374; 96375; 96376; 96361; 36415; 93005; 80053; 83605; 83690; 85025; 81001; 80320; J2270; J2765; J2405; J2470; J1308

== ENCOUNTER 2024-08-10 08:21 | Emergency (ER) | payer MEDICAID, OTHER ==
--- NOTE | 2024-08-10 09:03 | ED ---
Abdominal Pain HPI - General Source: patient, RN notes reviewed Mode of arrival: ambulatory Limitations: no limitations <Gwendolyn Michael - Last Filed: 08/10/24 09:01> - General Source: patient, RN notes reviewed <Katlyn Puga - Last Filed: 08/10/24 14:43> - General Stated Complaint: Abd pain, vomiting Time Seen by Provider: 08/10/24 09:01 - History of Present Illness Initial Comments: Note: 39-year-old male presented the ER for evaluation of abdominal pain. Patient states last night he has been having severe abdominal pain along with nausea and vomiting. He does report a history of gastric ulcers and had EGD completed by . Unknown fevers. (Gwendolyn Michael) 39-year-old male presenting for abdominal pain with nausea/vomiting. Describes epigastric pain that began at 2 AM last night with associated nausea and vomiting. States he has a history of alcohol use disorder and relapsed 4 days ago. His last drink was 4 AM this morning. He does have a history of epigastric pain secondary to esophageal erosions and gastritis. Last EGD by Dr. Means was May 25. Also endorses diarrhea. Denies history of alcohol withdrawal seizures. (Katlyn Puga) - Related Data Home Medications Medication Instructions Recorded Confirmed Omeprazole Magnesium [PriLOSEC OTC] 20 mg PO BID 08/10/24 08/10/24 cloNIDine HCL [Catapres] 0.1 mg PO BID 08/10/24 08/10/24 Previous Rx's Medication Instructions Recorded LORazepam [Ativan] 0.5 mg PO BID 3 Days #6 tab 08/10/24 Allergies Allergy/AdvReac Type Severity Reaction Status Date / Time No Known Allergies Allergy Verified 08/10/24 13:25 Review of Systems ROS Other: All systems not noted in ROS Statement are negative. <Gwendolyn Michael - Last Filed: 08/10/24 09:01> ROS Other: All systems not noted in ROS Statement are negative. <Katlyn Puga - Last Filed: 08/10/24 14:43> ROS Statement: Those systems with pertinent positive or pertinent negative responses have been documented in the HPI. Past Medical History Past Medical History: Hypertension Additional Past Medical History / Comment(s): excessive vomiting approx 2 weeks ago and pain, hospitalized in ER for pain Mar 2024,alcohol History of Any Multi-Drug Resistant Organisms: None Reported Past Surgical History: No Surgical Hx Reported Additional Past Surgical History / Comment(s): EGD 05/25/24 Past Psychological History: Depression Smoking Status: Current every day smoker Past Alcohol Use History: Daily Past Drug Use History: None Reported - Past Family History Mother Family Medical History: No Reported History <Gwendolyn Michael - Last Filed: 08/10/24 09:01> General Exam <Gwendolyn Michael - Last Filed: 08/10/24 09:01> General appearance: alert, in no apparent distress Head exam: Present: atraumatic, normocephalic, normal inspection Eye exam: Present: normal appearance, PERRL, EOMI. Absent: scleral icterus, conjunctival injection, periorbital swelling ENT exam: Present: normal exam, mucous membranes moist Respiratory exam: Present: normal lung sounds bilaterally. Absent: respiratory distress, wheezes, rales, rhonchi, stridor Cardiovascular Exam: Present: regular rate, normal rhythm, normal heart sounds. Absent: systolic murmur, diastolic murmur, rubs, gallop, clicks GI/Abdominal exam: Present: soft, normal bowel sounds. Absent: distended, tenderness, guarding, rebound, rigid Neurological exam: Present: alert, oriented X3 Psychiatric exam: Present: normal affect, normal mood Skin exam: Present: warm, dry, intact, normal color. Absent: rash <Katlyn Puga - Last Filed: 08/10/24 14:43> - General Exam Comments Initial Comments: Visual Physical Exam Vital signs reviewed General: nontoxic, no acute distress. Anxious Head: Normocephalic, atraumatic Eyes: PERRLA, EOMI ENT: Airway patent Chest: Nonlabored breathing Skin: No visual rash, normal skin tone Neuro: Alert and oriented 3 Musculoskeletal: No gross abnormalities (Gwendolyn Michael) Course Vital Signs 08/10/24 08/10/24 09:07 11:15 Temperature 98.0 F Pulse Rate 76 74 Respiratory 22 16 Rate Blood Pressure 152/111 162/108 O2 Sat by Pulse 97 99 Oximetry Medical Decision Making <Gwendolyn Michael - Last Filed: 08/10/24 09:01> - Lab Data Result diagrams: 08/10/24 10:09 08/10/24 10:09 - EKG Data -: EKG Interpreted by Me <Katlyn Puga - Last Filed: 08/10/24 14:43> - Medical Decision Making I performed the quick note portion of this chart. Electronically signed by Gwendolyn Michael PA-C (Gwendolyn Michael) Was pt. sent in by a medical professional or institution (, [facility], LENS GRINDER APPRENTICE, urgent care, hospital, or [facility]...) When possible be specific @ -No Did you speak to anyone other than the patient for history (EMS, parent, family, police, friend...)? What history was obtained from this source @ -No Did you review nursing and triage notes (agree or disagree)? Why? @ -I reviewed and agree with nursing and triage notes Were old charts reviewed (outside hosp., previous admission, EMS record, old EKG, old radiological studies, urgent care reports/EKG's, [facility] records)? Report findings @ -Reviewed previous ER notes including CT abdomen pelvis from March which showed no acute process Differential Diagnosis (chest pain, altered mental status, abdominal pain women, abdominal pain men, vaginal bleeding, weakness, fever, dyspnea, syncope, head ache, dizziness, GI bleed, back pain, seizure, CVA, palpatations, mental health, musculoskeletal)? @ -Differential Abdominal Pain Men: Appendicitis, cholecystitis, diverticulosis, ischemic bowel, pancreatitis, hepatitis, UTI, gastroenteritis, AAA, incarcerated hernia, bowel obstruction, constipation, inflammatory bowel, hepatitis, peptic ulcer disease, splenic infarction, perforated viscus, testicular torsion, this is not meant to be an all-inclusive list EKG interpreted by me (3pts min.). @ -As above X-rays interpreted by me (1pt min.). @ -None done CT interpreted by me (1pt min.). @ -None done U/S interpreted by me (1pt. min.). @ -None done What testing was considered but not performed or refused? (CT, X-rays, U/S, labs)? Why? @ -Recommended CT abdomen pelvis however patient refuses What meds were considered but not given or refused? Why? @ -None Did you discuss the management of the patient with other professionals (professionals i.e. [facility] Lockett, LENS GRINDER APPRENTICE, lab, RT, psych nurse, social worker clinical, shop blacksmith, teacher, credit or loans officer, manager case)? Give summary @ -No Was smoking cessation discussed for >3mins.? @ -No Was critical care preformed (if so, how long)? @ -No Were there social determinants of health that impacted care today? How? (Homelessness, low income, unemployed, alcoholism, drug addiction, transportation, low edu. Level, literacy, decrease access to med. care, fdc, rehab)? @ -No Was there de-escalation of care discussed even if they declined (Discuss DNR or withdrawal of care, Hospice)? DNR status @ -No What co-morbidities impacted this encounter? (DM, HTN, Smoking, COPD, CAD, Cancer, CVA, ARF, Chemo, Hep., AIDS, mental health diagnosis, sleep apnea, morbid obesity)? @ -Alcohol use disorder Was patient admitted / discharged? Hospital course, mention meds given and r oute, prescriptions, significant lab abnormalities, going to OR and other pertinent info. @ - discharge. 39-year-old male presenting for epigastric pain with associated nausea and vomiting since last night. States he has a history of alcohol use disorder and relapsed 4 days ago. He does have a history of epigastric pain secondary to esophageal erosions and gastritis. Patient was seen and evaluated in room 8. History and physical examination conducted. Patient is mildly hypertensive otherwise vital signs within acceptable limits. Abdomen soft and nonsurgical. Provided with IV fluids, Pepcid, Protonix, Zofran, morphine, and Carafate. Lab work remarkable for mildly elevated white blood cell count 11 likely secondary to vomiting. Metabolic acidosis, anion gap 19, likely secondary to vomiting. Serum alcohol 37. Lactic acidosis of 3.7. Upon reevaluation, patient reports significant improvement of symptoms and would like to be discharged. I did recommend CT abdomen pelvis however patient refuses. Discussed with patient that he must follow-up with his PCP tomorrow for reevalua tion. He was prescribed a short course of Ativan to help with withdrawal. He has no history of alcohol withdrawal seizures. Strict return precautions discussed with patient and he is agreeable to plan. Case was discussed with my ED attending . Undiagnosed new problem with uncertain prognosis? @ -No Drug Therapy requiring intensive monitoring for toxicity (Heparin, Nitro, Insulin, Cardizem)? @ -No Were any procedures done? @ -No Diagnosis/symptom? @ -Gastritis, alcohol withdrawal Acute, or Chronic, or Acute on Chronic? @ -Acute Uncomplicated (without systemic symptoms) or Complicated (systemic symptoms)? @ -Complicated Side effects of treatment? @ -No Exacerbation, Progression, or Severe Exacerbation? @ -No Poses a threat to life or bodily function? How? (Chest pain, [place], [place], pneumonia, PE, COPD, DKA, ARF, appy, cholecystitis, CVA, Diverticulitis, Homicidal, Suicidal, threat to staff... and all critical care pts) @ -Unlikely at this time (Katlyn Puga) - Lab Data Lab Results 08/10/24 08/10/24 08/10/24 Range/Units 10:09 10:09 10:09 WBC 11.29 H (4.50-10.00) 10*3/uL RBC 5.01 (4.40-5.60) 10*6/uL Hgb 16.5 (13.0-17.0) g/dL Hct 44.1 (39.6-50.0) % MCV 88.0 (80.0-97.0) fL MCH 32.9 H (27.0-32.0) pg MCHC 37.4 H (32.0-37.0) g/dL Plt Count 237 (140-440) 10*3/uL MPV 9.0 L (9.5-12.2) fL Immature Gran % (Auto) 1.2 % Neutrophils % 84.5 % Lymphocytes % 12.0 % Monocytes % 1.7 % Eosinophils % 0.1 % Basophils % 0.5 % Immature Gran # 0.13 H (0.00-0.04) 10*3/uL Neutrophils # 9.54 H (1.80-7.70) 10*3/uL Lymphocytes # 1.36 (0.90-5.00) 10*3/uL Monocytes # 0.19 L (0.20-1.00) 10*3/uL Eosinophils # 0.01 L (0.04-0.35) 10*3/uL Basophils # 0.06 (0.00-0.10) 10*3/uL Sodium 141 (137-145) mmol/L Potassium 4.4 (3.5-5.1) mmol/L Chloride 104 (98-107) mmol/L Carbon Dioxide 18 L (22-30) mmol/L Anion Gap 19 mmol/L BUN 19 (9-20) mg/dL Creatinine 1.02 (0.66-1.25) mg/dL Est GFR (CKD-EPI)AfAm >90 (>60 ml/min/1.73 sqM) Est GFR (CKD-EPI)NonAf >90 (>60 ml/min/1.73 sqM) Glucose 158 H (74-99) mg/dL Lactic Ac Sepsis Rflx Plasma Lactic Acid Ismael 3.7 H* (0.7-2.0) mmol/L Calcium 9.3 (8.4-10.2) mg/dL Total Bilirubin 0.5 (0.2-1.3) mg/dL AST 51 (17-59) U/L ALT 98 H (4-49) U/L Alkaline Phosphatase 83 (38-126) U/L Total Protein 7.7 (6.3-8.2) g/dL Albumin 5.2 H (3.5-5.0) g/dL Amylase 41 (30-110) U/L Lipase 40 (23-300) U/L Urine Color Urine Appearance (Clear) Urine pH (5.0-8.0) Ur Specific [place] (1.001-1.035) Urine Protein (Negative) Urine Glucose (UA) (Negative) Urine Ketones (Negative) Urine Blood (Negative) Urine Nitrite (Negative) Urine Bilirubin (Negative) Urine Urobilinogen (<2.0) mg/dL Ur Leukocyte Esterase (Negative) Urine RBC (0-5) /hpf Urine WBC (0-5) /hpf Ur Squamous Epith Cells (0-4) /hpf Hyaline Casts (0-2) /lpf Urine Mucus (None) /hpf Serum Alcohol 37 mg/dL 08/10/24 08/10/24 Range/Units 10:38 11:18 WBC (4.50-10.00) 10*3/uL RBC (4.40-5.60) 10*6/uL Hgb (13.0-17.0) g/dL Hct (39.6-50.0) % MCV (80.0-97.0) fL MCH (27.0-32.0) pg MCHC (32.0-37.0) g/dL Plt Count (140-440) 10*3/uL MPV (9.5-12.2) fL Immature Gran % (Auto) % Neutrophils % % Lymphocytes % % Monocytes % % Eosinophils % % Basophils % % Immature Gran # (0.00-0.04) 10*3/uL Neutrophils # (1.80-7.70) 10*3/uL Lymphocytes # (0.90-5.00) 10*3/uL Monocytes # (0.20-1.00) 10*3/uL Eosinophils # (0.04-0.35) 10*3/uL Basophils # (0.00-0.10) 10*3/uL Sodium (137-145) mmol/L Potassium (3.5-5.1) mmol/L Chloride (98-107) mmol/L Carbon Dioxide (22-30) mmol/L Anion Gap mmol/L BUN (9-20) mg/dL Creatinine (0.66-1.25) mg/dL Est GFR (CKD-EPI)AfAm (>60 ml/min/1.73 sqM) Est GFR (CKD-EPI)NonAf (>60 ml/min/1.73 sqM) Glucose (74-99) mg/dL Lactic Ac Sepsis Rflx Y Plasma Lactic Acid Ismael (0.7-2.0) mmol/L Calcium (8.4-10.2) mg/dL Total Bilirubin (0.2-1.3) mg/dL AST (17-59) U/L ALT (4-49) U/L Alkaline Phosphatase (38-126) U/L Total Protein (6.3-8.2) g/dL Albumin (3.5-5.0) g/dL Amylase (30-110) U/L Lipase (23-300) U/L Urine Color Yellow Urine Appearance Cloudy (Clear) Urine pH 5.0 (5.0-8.0) Ur Specific [place] 1.028 (1.001-1.035) Urine Protein Trace H (Negative) Urine Glucose (UA) Negative (Negative) Urine Ketones 2+ H (Negative) Urine Blood Negative (Negative) Urine Nitrite Negative (Negative) Urine Bilirubin Negative (Negative) Urine Urobilinogen <2.0 (<2.0) mg/dL Ur Leukocyte Esterase Negative (Negative) Urine RBC <1 (0-5) /hpf Urine WBC 2 (0-5) /hpf Ur Squamous Epith Cells <1 (0-4) /hpf Hyaline Casts 11 H (0-2) /lpf Urine Mucus Moderate H (None) /hpf Serum Alcohol mg/dL - EKG Data EKG Comments: EKG reveals sinus tachycardia with no acute ST changes. Ventricular rate 102 bpm, TN interval 157, QRS duration 86, QT/QTc 323/381 (Katlyn Puga) Disposition <Gwendolyn Michael - Last Filed: 08/10/24 09:01> Is patient prescribed a controlled substance at d/c from ED?: Yes When asked, does pt state using other controlled substances?: No If prescribed controlled substance>3 days was MAPS reviewed?: Prescribed <3 Days If opioid is for acute pain is fill amount 7 days or less?: Yes Time of Disposition: 14:40 <Katlyn Puga - Last Filed: 08/10/24 14:43> Clinical Impression: Gastritis, Alcohol withdrawal Disposition: HOME SELF-CARE Condition: Stable Instructions (If sedation given, give patient instructions): Alcohol Withdrawal (ED) Additional Instructions: Take Ativan as discussed as needed for withdrawal symptoms. Please follow-up with your PCP tomorrow. Please return to the Emergency Department if symptoms worsen or any other concerns. Prescriptions: LORazepam [Ativan] 0.5 mg PO BID 3 Days #6 tab Referrals: Jermain Hall MD [Primary Care Provider] - 1-2 days
[2024-08-10 09:10] VITALS: TEMP 98
[2024-08-10 10:19] LABS: Basophils # (A) 0.06 10*3/uL (0.00-0.10); Basophils % (A) 0.5 %; Eosinophils # (A) 0.01 10*3/uL (0.04-0.35); Eosinophils % (A) 0.1 %; HCT 44.1 % (39.6-50.0); HGB 16.5 g/dL (13.0-17.0); Lymphocytes # (A) 1.36 10*3/uL (0.90-5.00); MCH 32.9 pg (27.0-32.0); MCHC 37.4 g/dL (32.0-37.0); Monocytes # (A) 0.19 10*3/uL (0.20-1.00); Monocytes % (A) 1.7 %; Neutrophils # (A) 9.54 10*3/uL (1.80-7.70); Neutrophils % (A) 84.5 %; Platelet Count 237 10*3/uL (140-440); RBC 5.01 10*6/uL (4.40-5.60); RDW 12.9 % (11.5-14.5); WBC 11.29 10*3/uL (4.50-10.00)
[2024-08-10 10:28] LABS: ALT 98 U/L (4-49); AST 51 U/L (17-59); African American GFR (CKD) >90 (>60 ml/min/1.73 sqM); Albumin 5.2 g/dL (3.5-5.0); Alcohol 37 mg/dL; Alkaline Phosphatase 83 U/L (38-126); Amylase 41 U/L (30-110); Anion Gap 19 mmol/L; Blood Urea Nitrogen 19 mg/dL (9-20); Calcium 9.3 mg/dL (8.4-10.2); Carbon Dioxide 18 mmol/L (22-30); Chloride 104 mmol/L (98-107); Glucose 158 mg/dL (74-99); Lipase 40 U/L (23-300); Non-African American GFR(CKD) >90 (>60 ml/min/1.73 sqM); Potassium 4.4 mmol/L (3.5-5.1); Sodium 141 mmol/L (137-145); Total Bilirubin 0.5 mg/dL (0.2-1.3); Total Protein 7.7 g/dL (6.3-8.2)
[2024-08-10] MEDS: SODIUM CHLORIDE 0.9% 1,000 ML IV STA (10:45)
[2024-08-10] MEDS: MORPHINE SULFATE 4 MG/ML SYRINGE IVP STA (10:47)
[2024-08-10] MEDS: ONDANSETRON 4 MG/2 ML VIAL IVP STA (10:48)
[2024-08-10] MEDS: PANTOPRAZOLE 40 MG/10 ML VIAL IVP STA (10:50)
[2024-08-10] MEDS: FAMOTIDINE 20 MG/2 ML VIAL IV STA (10:51)
[2024-08-10] MEDS: SUCRALFATE 1 GM TAB PO STA (11:30)
[2024-08-10 11:34] LABS: Appearance,Urine Cloudy (Clear); Bilirubin,Urine Negative (Negative); Blood,Urine Negative (Negative); Color,Urine Yellow; Glucose,Urine (UA) Negative (Negative); Hyaline Casts,Urine 11 /lpf (0-2); Ketones,Urine 2+ (Negative); Leukocyte Esterase,Urine Negative (Negative); Mucus,Urine Moderate /hpf; Nitrite,Urine Negative (Negative); Protein,Urine Trace (Negative); RBC,Urine <1 /hpf (0-5); Specific Gravity,Urine 1.028 (1.001-1.035); Squamous Epithelial Cell,Urine <1 /hpf (0-4); Urobilinogen,Urine <2.0 mg/dL (<2.0); WBC,Urine 2 /hpf (0-5)
[2024-08-10] MEDS: METOCLOPRAMIDE 5 MG/ML 2 ML VIAL IVP STA (13:39)
[2024-08-10] MEDS: ONDANSETRON 4 MG ODT STARTER PACK 2 TAB BTL PO STA (14:55)
[2024-08-10] MEDS: MORPHINE SULFATE 2 MG/ML SYRINGE IVP ONE (15:02)
[2024-08-10 15:09] VITALS: BP 175/115; PULSE 76; RESP 18
== END 2024-08-10 15:10 | disposition home or self-care (01) ==
LOC: EC 08:21
DX: K29.70 Gastritis, unspecified, without bleeding (principal); F10.939 Alcohol use, unspecified with withdrawal, unspecified; F17.200 Nicotine dependence, unspecified, uncomplicated; Y90.1 Blood alcohol level of 20-39 mg/100 ml
CPT/HCPCS: 36415; 93005; 80053; 82150; 83605; 83690; 85025; 81001; 80320; 99284; 96374; 96375; 96376; 96361; J2270 ×2; J2765; J2405; S0119; J2470; J1308